=== PATIENT | male | born 1960 | race Caucasian/White ===

== ENCOUNTER 2021-01-31 05:39 | Inpatient (IN) | payer MEDICAID, SELFPAY ==
[2021-01-31] VITALS (37 sets, daily range): BP systolic 74–124; BP diastolic 52–92; PULSE 63–85; RESP 12–27; TEMP 33.6–36.8; O2SAT 91–100; BMI 26.6
--- NOTE | 2021-01-31 | ECHO_ITS ---
Patient Info Name: Keith Jha Age: 60 years : 1960 Gender: Male Ht: 66 in Wt: 165 lbs BSA: 1.88 m2 HR: 72 bpm BP: 108 / 91 mmHg Heart Rhythm: Sinus Rhythm Technical Quality: Good Exam Date: 01/31/2021 1:34 PM Exam Location: [facility] Patient Status: Inpatient Admit Date: 01/31/2021 Staff Ordering Physician: Efe Donohue MD Medical Laboratory Technical Officer: Luis Mack, SERGIOCS, RT Attending Provider: Sushant Urban MD Exam Type: CA echo doppler color flow Study Info Indications I50.9 - Heart failure, unspecified Complete two-dimensional, color flow and Doppler transthoracic echocardiogram is performed. Strain analysis performed. Summary 1. Complete two-dimensional, color flow and Doppler transthoracic echocardiogram is performed. 2. The left ventricle is moderately dilated with mild eccentric hypertrophy. There is severe global hypokinesis, with probable akinesis of the basal inferoseptal area. The calculated ejection fraction is 17% and visually appears to be 10-15%. Diastolic function is indeterminate. Global longitudinal strain is severely diminished at -4% consistent with severe systolic dysfunction. 3. Right ventricular chamber dimension is moderately enlarged with severe global hypokinesis. 4. Left atrial chamber dimension is moderately enlarged. 5. Right atrial chamber dimension is moderately enlarged. 6. There is moderate to moderately severe mitral valve regurgitation. 7. There is moderate to moderately severe tricuspid valve regurgitation. 8. There is mild pulmonic regurgitation. 9. No pulmonary hypertension, estimated pulmonary arterial systolic pressure is 31 mmHg. 10. Normal sinus rhythm. Left Ventricle Left ventricular chamber dimension is moderately enlarged. Left ventricular systolic function is severely reduced, estimated at <15%. There is mildly increased left ventricular wall thickness. Left ventricular septal wall motion is normal. The left ventricular diastolic function is indeterminate. Global longitudinal strain is severely elevated at 4 %. Right Ventricle Right ventricular chamber dimension is moderately enlarged with severe global hypokinesis. Right ventricular systolic function is reduced. Left Atria Left atrial chamber dimension is moderately enlarged. Right Atria Right atrial chamber dimension is moderately enlarged. Aortic Valve The aortic valve is trileaflet. There is no aortic valve sclerosis. There is no aortic valve stenosis. There is no aortic valve regurgitation. Pulmonic Valve The pulmonic valve is normal. There is no pulmonic valve stenosis. There is mild pulmonic regurgitation. Mitral Valve The mitral valve has normal leaflets. There is no mitral valve stenosis. There is moderate to moderately severe mitral valve regurgitation. Tricuspid Valve The tricuspid valve leaflets are normal. There is no significant tricuspid valve stenosis. There is moderate to moderately severe tricuspid valve regurgitation. No pulmonary hypertension, estimated pulmonary arterial systolic pressure is 31 mmHg. Pericardium/Pleural The pericardium appears normal. There is no pericardial effusion. Inferior Vena Cava Normal inferior vena cava with >50% collapse upon inspiration consistent with Empty right atrial pressure, 10 mmHg. Aorta The aortic root size at the sinus of Valsalva is normal. The prox ascending aorta size is normal. Left Ventricular Outflow Tract
--- NOTE | ~2021-01-31 | XR_ITS ---
EXAMINATION: XR fl guide central line place INDICATION: Tunnel dialysis catheter insertion TECHNIQUE: Two intraoperative fluoroscopic images are submitted for review. Total fluoroscopic time w as 20.1 seconds. COMPARISON: None available FINDINGS: Fluoroscopic images demonstrate a left internal jugular tunneled dialysis catheter ending w ith its tip in the proximal right atrium. Please refer to procedure note for full details. IMPRESSION: 1. Left internal jugular tunneled dialysis catheter ending with its tip in the proximal right atrium. Reviewed, dictated and finalized at location A. DESIGNER
--- NOTE | ~2021-01-31 | XR_ITS ---
EXAMINATION: XR chest 1V portable DATE: 02/01/2021 05:30 INDICATION: Right pleural effusion. TECHNIQUE: A single frontal view of the chest was obtained. COMPARISON: Chest single view 01/31/21 FINDINGS: There is a large right pleural effusion. There are airspace opacities at right lung base. T here are mild airspace opacities in left mid and lower lung zones. No pneumothorax. Cardiomegaly is n oted. Median sternotomy wires and mediastinal surgical clips are seen, likely from prior coronary art gretta bypass grafting. A right internal jugular central venous catheter is seen with tip IMPRESSION: 1. Stable large right pleural effusion. 2. Airspace opacities at left lung base and in left mid and lower lung zones with worsening on the le ft, consistent with atelectasis versus pneumonia. 3. Cardiomegaly. Reviewed, dictated and finalized at location A. DENTIAL SOLAR CONSULTANT IMPRESSION: 1. Stable large right pleural effusion. 2. Airspace opacities at left lung base and in left mid and lower lung zones wi th worsening on the left, consistent with atelectasis versus pneumonia. 3. Cardiomegaly.
--- NOTE | ~2021-01-31 | XR_ITS ---
EXAMINATION: XR chest port-a-cath/central INDICATION: Tunnel dialysis catheter insertion TECHNIQUE: Portable AP chest at 11:30 hours COMPARISON: 02/01/2021 FINDINGS: A left internal jugular dialysis catheter has been inserted which ends with its tip in the proximal right atrium. The catheter is slightly kinked at the skin surface. A large right pleural eff usion has increased in size since the prior examination. Diffuse bilateral airspace opacities are pre sent. Cardiomegaly is noted. Median sternotomy wires and mediastinal surgical clips are seen, likely from prior coronary artery bypass grafting. A right internal jugular catheter ends with its tip in th e distal superior vena cava. There is no pneumothorax. IMPRESSION: 1. Left internal jugular tunneled dialysis catheter inserted ending with its tip in the proximal righ t atrium. 2. Large right pleural effusion, slightly increased in size. 3. Diffuse bilateral airspace opacities, consistent with atelectasis versus pneumonia versus pulmonar y edema. 4. Cardiomegaly. Reviewed, dictated and finalized at location A. ENT INTAKE REPRESENTATIVE IMPRESSION: 1. Left internal jugular tunneled dialysis catheter inserted ending with its ti p in the proximal right atrium. 2. Large right pleural effusion, slightly increased in size. 3. Diffuse bilateral airspace opacities, consistent with atelectasis versus pne umonia versus pulmonary edema. 4. Cardiomegaly.
--- NOTE | ~2021-01-31 | CT_ITS ---
EXAMINATION: CT chest abdomen pelvis wo con EXAM DATE: 01/31/2021 10:47 INDICATION: Pneumonia, abdominal pain. Recent COVID positive. COPD, CHF. TECHNIQUE: Spiral CT of the chest, abdomen and pelvis was performed without contrast. Axial, israel l and sagittal images were reviewed. Coronal maximum intensity pixel images of chest reviewed. The dose-length product (DLP) for this examination was 938.35 mGy-cm. The exposure was tailored accordin g to patient size (auto mA exposure control), and iterative reconstruction (ASIR) was used as additio nal dose reduction technique. Comparison is made to prior examination from 01/31/2021, from outside ins titution. FINDINGS: CHEST: There is a right-sided IJ venous catheter in position. There is large right pleural effusion with collapsed right lower and middle lobes. Subsegmental atelectasis of the right upper lobe. Some small peripheral scattered bilateral regions of opacity, could be atelectasis or pneumonia. Right lo wer lobe, middle lobe segmental bronchi also not aerated, probably have debris. There is no mediasti nal, hilar or axillary lymphadenopathy. There is no pneumothorax. Moderate cardiomegaly. No peric ardial or left pleural effusions. There are sternotomy wires, and cardiac/coronary surgical changes . Correlate with prior history. ABDOMEN PELVIS: The liver, spleen, adrenal glands and pancreas are unremarkable. There is anasarca. T race perihepatic ascites. Moderate amount of retroperitoneal, perinephric, pericholecystic, periporta l edema. Gallbladder is contracted without calcified cholelithiasis. Mild bilateral renal atrophy. N o nephrolithiasis or hydronephrosis. There is a 1 cm cyst in the superior pole left kidney. The pros asencio is unremarkable. The bladder is collapsed with Thurman catheter balloon anchor inside. There is no retroperitoneal or pelvic lymphadenopathy. There is moderate scattered arteriosclerotic disease. The appendix is normal. The stomach and small bowel are unremarkable. There is expected amount of c olonic stool. No free intraperitoneal gas. There are bony degenerative changes. Small inguinal and umbilical fat-containing hernias. Moderate sized subxiphoid fat-containing hernia. IMPRESSION: 1. Moderate cardiomegaly. Large right pleural effusion, right middle and lower lobe collapse. 2. Small regions bilateral peripheral atelectasis or pneumonia. 3. Anasarca, retroperitoneal, perirenal, periportal and pericholecystic fat stranding. Trace perihep atic ascites. This limits sensitivity for acute intra-abdominal processes. 4. Contracted gallbladder without calcified cholelithiasis. Reviewed, dictated and finalized at location A. O TUBE ASSEMBLER IMPRESSION: 1. Moderate cardiomegaly. Large right pleural effusion, right middle and lower lobe collapse. 2. Small regions bilateral peripheral atelectasis or pneumonia. 3. Anasarca, retroperitoneal, perirenal, periportal and pericholecystic fat st randing. Trace perihepatic ascites. This limits sensitivity for acute intra-abd ominal processes. 4. Contracted gallbladder without calcified cholelithiasis.
--- NOTE | ~2021-01-31 | US_ITS ---
EXAMINATION: US abdomen limited, US abdomen duplex complete EXAM DATE: 02/01/2021 12:13 INDICATION: Elevated liver enzymes. Elevated bilirubin. Elevated AST and LT. TECHNIQUE: Multiple grayscale and Doppler images of the abdomen right upper quadrant were obtained (b y a technologist who performed the scan) and subsequently reviewed. Hepatic and portal vein Doppler evaluation. FINDINGS: Small amount of perihepatic ascites. Evaluation of hepatic vasculature. The right left and middle hepatic veins are nonthrombosed. The portal veins have biphasic waveforms, flow reversal durin g approximately one third of the cardiac cycle, likely indicating portal hypertension. The pancreatic head and body are normal in appearance. The pancreatic tail is not visualized. The l iver has normal echogenicity and contour. There are no focal liver lesions identified. There is no evidence of intrahepatic biliary duct dilation. Portal venous flow was seen in the hepatopedal, nor mal direction and has normal Doppler waveform. No right-sided hydronephrosis. Common bile duct measures 6 mm, which is normal. There are gallstones. Wall thickening up to 6 mm, mo derately edematous. Technologist performing exam reports patient did not demonstrate sonographic Mur phy's sign. Please note that this sign is less reliable in patients who have received pain medicatio n. Spleen measures 10 cm in diameter, normal. IMPRESSION: 1. Biphasic portal venous waveform, likely indicating portal hypertension. Probably cirrhosis. 2. Cholelithiasis. Gallbladder wall thickening which is nonspecific in setting of ascites and absenc e of sonographic Mack's sign. 3. No hepatic venous thrombosis. Reviewed, dictated and finalized at location A. X CASTER IMPRESSION: 1. Biphasic portal venous waveform, likely indicating portal hypertension. Pro bably cirrhosis. 2. Cholelithiasis. Gallbladder wall thickening which is nonspecific in setting of ascites and absence of sonographic Mack's sign. 3. No hepatic venous thrombosis.
--- NOTE | ~2021-01-31 | US_ITS ---
EXAMINATION: US renal BI DATE: 02/01/2021 12:13 INDICATION: Renal failure. TECHNIQUE: Multiple ultrasound grayscale images of the kidneys were obtained. COMPARISON: CT abdomen and pelvis 01/31/21 FINDINGS: The right kidney measures 10.2 x 5.4 x 5.5 cm. The left kidney measures 11.8 x 6.5 x 4.5 cm. The kidn eys demonstrate normal parenchymal echogenicity. There is no hydronephrosis. The bladder is decompres sed by a Thurman catheter. IMPRESSION: 1. Normal kidneys. No hydronephrosis. Reviewed, dictated and finalized at location A. MARKER
--- NOTE | ~2021-01-31 | XR_ITS ---
EXAMINATION: XR chest 1V portable DATE: 01/31/2021 06:20 INDICATION: Acute respiratory failure. TECHNIQUE: A single frontal view of the chest was obtained. COMPARISON: None. FINDINGS: There is a large right pleural effusion. There are airspace opacities at right lung base. C alcified left lung nodules and calcified left hilar lymph nodes are consistent with old granulomatous disease. No pneumothorax. The heart size is normal. Median sternotomy wires and mediastinal surgical clips are seen, likely from prior coronary artery bypass grafting. A right internal jugular central venous catheter is seen with tip in the superior vena cava. IMPRESSION: 1. Large right pleural effusion. 2. Airspace opacities at right lung base, consistent with atelectasis versus pneumonia. Reviewed, dictated and finalized at location A. TATION WORKER HOSING MACHINERY IMPRESSION: 1. Large right pleural effusion. 2. Airspace opacities at right lung base, consistent with atelectasis versus pn eumonia.
--- NOTE | 2021-01-31 05:30 | ADMGEN ---
This patient, Keith Jha, was admitted to Intensive Care Unit-10. Patient/family oriented to hospital policies and general routines including ID bracelet, bed and alarms, visiting hours, pain management, procedures, bathroom and other care routines, personal items, smoking policy, room service/diet, and visiting hours. Information on how to activate the Rapid Response Team has been discussed. Patient/Family are encouraged to report perceived risks to care and to ask questions if they do not understand what they are told or what they should do.
--- NOTE | 2021-01-31 05:56 | ECG_ITS ---
Measurements Intervals [place] Rate: 79 P: -2 WV: 208 QRS: 80 QRSD: 112 T: 30 QT: 398 QTc: 456 Interpretive Statements SINUS RHYTHM INTRAVENTRICULAR CONDUCTION DELAY BORDERLINE R WAVE PROGRESSION, ANTERIOR LEADS BORDERLINE T WAVE ABNORMALITY- INFERIOR LEADS BASELINE WANDER- V4-V6 BORDERLINE ECG Electronically Signed On 01-31-2021 11:51:16 [employer] by Sammy Gonzales D.O.
[2021-01-31 06:24] LABS: INR 2.7; Prothrombin Time 28.9 Seconds (11.1-14.7)
[2021-01-31 06:25] LABS: Partial Thromboplastin Time 36.3 SECONDS (22.3-36.8)
[2021-01-31 06:34] LABS: Alanine Aminotransferase 746 U/L (4-50); Albumin Level 3.7 g/dL (3.5-5.1); Alkaline Phosphatase 84 U/L (38-126); Anion Gap 18 mmol/L (8-16); Bilirubin,Total 3.4 mg/dL (0.2-1.3); Blood Urea Nitrogen 27 mg/dL (9-20); Calcium 8.6 mg/dL (8.4-10.2); Carbon Dioxide 17 mmol/L (22-30); Chloride 100 mmol/L (98-107); Estimated CRCL calculation 30 ml/min; Estimated Glomerular Filt Rate 32; Glucose 43 mg/dL (75-110); Lactic Acid Reflex 10.2 mmol/L (0.7-2.1); Phosphorus 8.6 mg/dL (2.5-4.5); Potassium 5.7 mmol/L (3.4-5.0); Sodium 135 mmol/L (137-145)
[2021-01-31 06:38] LABS: Alveolar/Arterial O2 Gradient 168.2 mmHg; Base Excess ABG -13.1 mEq/l (+/-2.0); Fractional Inspired Oxygen 40 %; HCO3 ABG 13.6 mEq/l (22.0-26.0); Oxygen Content ABG 12.6 %vol (16.0-22.0); Oxygen Saturation ABG 93.1 % (95.0-100.0); Oxyhemoglobin 89.7 % THb (90.0-100.0); PCO2 ABG 34.3 mmHg (35.0-45.0); PO2 ABG 77.6 mmHg (80.0-100.0); PO2 FiO2 Ratio Arterial Blood 1.94 %; Total Hemoglobin 9.9 g/dL (12.0-18.0)
[2021-01-31 06:39] LABS: Device NASAL CANNULA; Modified Allen's Test Unable to perform; Site Drawn LEFT RADIAL; pH ABG 7.217 (7.350-7.450)
[2021-01-31 06:41] LABS: Glucose Point of Care 39 (65-105)
[2021-01-31] MEDS: AMIODARONE 360 MG/D5W 200 ML 360 MG/200 ML BAG 33.33 MG IV CONT (06:49)
[2021-01-31] MEDS: NOREPINEPHRINE 8 MG/D5W 250 ML 8 MG/250 ML BAG 18.75 MG IV CONT (06:50)
[2021-01-31 06:55] LABS: Glucose Point of Care 134 (65-105)
[2021-01-31] MEDS: DEXTROSE 50% 25 GM/50 ML SYRINGE IV PUSH ×2 (06:58→14:08)
[2021-01-31 07:01] LABS: Troponin I 0.111 ng/mL (0.000-0.034)
[2021-01-31 07:12] LABS: Aspartate Amino Transferase 2374 U/L (17-59)
[2021-01-31] MEDS: SODIUM BICARBONATE 8.4% 50 MEQ/50 ML SYRINGE (07:23)
[2021-01-31] MEDS: SODIUM BICARBONATE 8.4% 150 MEQ in DEXTROSE 5% 1,000 ML 950 ML 50 MEQ IV CONT (07:54)
[2021-01-31 07:57] LABS: Lactate Dehydrogenase > 10750 U/L (313-618)
--- NOTE | 2021-01-31 08:51 | WPDCNINT ---
Assessment and Plan Assessment and plan (1) Septic shock: Code(s): A41.9 - Sepsis, unspecified organism; R65.21 - Severe sepsis with septic shock Status: Acute Assessment and Plan: Patient received 1 L fluid bolus due to concern of congestive heart failure Currently on IV fluids with bicarb and dextrose Levophed And vasopressin and hydrocortisone Maintain map Monitor lactic acid level (2) Acute respiratory failure: Code(s): J96.00 - Acute respiratory failure, unspecified whether with hypoxia or hypercapnia Status: Acute Assessment and Plan: Acute Respiratory failure secondary to pneumonia pulmonary, COPD, pleural effusion Patient was on BiPAP until this morning. Will try to wean him off to nasal cannula and see if he tolerates Continue close monitoring ABG and PCXR reviewed Check CT chest (3) PNA (pneumonia): Code(s): J18.9 - Pneumonia, unspecified organism Status: Acute Assessment and Plan: Empiric broad-spectrum antibiotics Cultures (4) COPD (chronic obstructive pulmonary disease): Code(s): J44.9 - Chronic obstructive pulmonary disease, unspecified Status: Acute Assessment and Plan: Start steroids, bronchodilators (5) Pleural effusion: Code(s): J90 - Pleural effusion, not elsewhere classified Status: Acute Assessment and Plan: Thoracentesis planned (6) SVT (supraventricular tachycardia): Code(s): I47.1 - Supraventricular tachycardia Status: Acute Assessment and Plan: Status post 3 dose of adenosine Now on amiodarone infusion Consult cardiology (7) Coagulopathy: Code(s): D68.9 - Coagulation defect, unspecified Status: Acute Assessment and Plan: INR 2.7 patient not on any anticoagulation suspect secondary to liver disease Vitamin K 10 mg subcu (8) Elevated liver transaminase level: Code(s): R74.01 - Elevation of levels of liver transaminase levels Status: Acute Assessment and Plan: Significantly elevated liver enzymes likely consistent with shock liver versus hepatic congestion. Patient admits to taking 2 tablets of Tylenol a day on most days for his migraine headache but denies any increase usage recently Check CT abdomen, check Tylenol level Monitor LFTs Hold statin Consult GI (9) Cirrhosis: Code(s): K74.60 - Unspecified cirrhosis of liver Status: Acute Assessment and Plan: Check CT abdomen Check ammonia level Vitamin K administered (10) Abdominal pain: Code(s): R10.9 - Unspecified abdominal pain Status: Acute Assessment and Plan: Lipase was normal Elevated LFTs as above Elevated lactic acid could be from sepsis Check CT abdomen Denies any diarrhea Continue Zosyn (11) CONI (acute kidney injury): Code(s): N17.9 - Acute kidney failure, unspecified Status: Acute Assessment and Plan: IV fluid with bicarb CT abdomen pelvis Monitor urine output and electrolytes (12) Hyperkalemia: Code(s): E87.5 - Hyperkalemia Status: Acute Assessment and Plan: Treated chemically this morning Repeat BMP at 12 (13) Chest pain: Code(s): R07.9 - Chest pain, unspecified Status: Acute Assessment and Plan: Patient has baseline history of coronary disease Chest pain although does not appear cardiac in nature, patient did had mildly elevated troponin but again in presence of septic shock and acute kidney injury E[facility] done at [facility] showed T-wave inversion in lateral leads Added aspirin Not a candidate for beta-allen statin or ARB at this time Consult cardiology Check echo Serial troponins (14) CAD (coronary artery disease): Code(s): I25.10 - Atherosclerotic heart disease of [place] coronary artery without angina pectoris Status: Acute (15) CHF (congestive heart failure): Code(s): I50.9 - Heart failure, unspecified Status: Acute
[2021-01-31 09:05] LABS: Reflex Lactic Acid Yes or No Add Lactic
[2021-01-31] MEDS: VASOPRESSIN INJ 100 UNITS in DEXTROSE 5% 95 ML IV CONT (09:11)
[2021-01-31] MEDS: ASPIRIN 325 MG TABLET PO (09:11)
--- NOTE | 2021-01-31 09:46 | PM.CNCAR ---
Assessment and Plan Assessment and plan (1) Acute respiratory failure: Code(s): J96.00 - Acute respiratory failure, unspecified whether with hypoxia or hypercapnia Status: Acute Assessment and Plan: Acute respiratory failure secondary to large right pleural effusion, possible underlying pneumonia. At this time thoracentesis is being hold off because of elevated INR. Patient had COVID infection last month (2) SVT (supraventricular tachycardia): Code(s): I47.1 - Supraventricular tachycardia Status: Acute Assessment and Plan: Terminated by adenosine and currently on amiodarone. Recommend amiodarone for today but discontinue the amiodarone tomorrow. (3) CHF (congestive heart failure): Code(s): I50.9 - Heart failure, unspecified Status: Acute Assessment and Plan: He has reported that he has ejection fraction 28% last month. Obtain records. Anti patient is in shock possibly septic shock and on vasopressin and Levophed. (4) Septic shock: Code(s): A41.9 - Sepsis, unspecified organism; R65.21 - Severe sepsis with septic shock Status: Acute Assessment and Plan: On antibiotic, vasopressin and Levophed. (5) Cirrhosis: Code(s): K74.60 - Unspecified cirrhosis of liver Status: Acute (6) Coagulopathy: Code(s): D68.9 - Coagulation defect, unspecified Status: Acute History of Present Illness History of Present Illness Consult date/time: Date of service 01/31/21 09:46 Requesting physician: Efe Donohue MD Consult reason: atrial fibrillation and congestive heart failure Reason For Visit: Acute respiratory failure/septic shock Narrative: This 60-year-old male patient with past medical history of CABG 2018 hypertension, hyperlipidemia , hepatitis-C, COPD, Previous history of tobacco use and quit 2 years ago after smoking for about 40 years. Apparently had COVID infection and was discharged from the hospital a week ago. He presented again to [facility] with shortness of breath and cough and was felt to be septic and transferred to [facility]. Apparently he stated that shortness of breath has not improved and he continued to have severe dry cough and he felt pain on the right chest from coughing. He was found to be in supraventricular tachycardia that was terminated by adenosine and patient was started on amiodarone. Apparently was on CPAP but currently he is not on CPAP management. Is currently being treated with broad-spectrum antibiotics, steroids. Currently he is in sinus rhythm. He is on Levophed 12 mics and vasopressin. He is on nasal cannula. He is sleepy. He does not want to use the BiPAP anymore. Lactic acid is 10, creatinine 2.1, potassium 5.7, LDH> 10k, AST 2300, ALT 750, troponin 0.111, chest x-ray reviewed and denies myself shows large right pleural effusion, pneumonia versus atelectasis. Review of Systems Constitutional: Constitutional: Reports fatigue, Reports lethargy and Reports weakness Eyes: Eyes: Denies blurry vision ENT: Denies epistaxis Cardiovascular: Cardiovascular: Denies chest pain Respiratory: Respiratory: Reports cough and Reports dyspnea Gastrointestinal: Gastrointestinal: Denies abdominal pain and Denies diarrhea Genitourinary: Genitourinary: Denies flank pain Musculoskeletal: Musculoskeletal: Denies back pain Integumentary/Breasts: Skin/Breast: Denies pruritus and Denies rash Neurologic: Reports headache(s) Psychiatric: Psychiatric: Reports anxiety Endocrine: Endocrine: Reports fatigue Hematologic/Lymphatic: Hematologic/Lymphatic: Denies easy bruising PMFSH Past Medical History Medical History (Updated 01/31/21 @ 10:05 by Elma Max MD) CAD (coronary artery disease) Cirrhosis COPD (chronic obstructive pulmonary disease) COVID-19 Surgical History Surgical History (Updated 01/31/21 @ 10:05 by Elma Max MD) Hx of CABG Family History Family
[2021-01-31 10:11] LABS: Acetaminophen < 10 ug/mL (10-30)
[2021-01-31 10:17] LABS: Lactic Acid 9.4 mmol/L (0.7-2.1)
[2021-01-31] MEDS: PHYTONADIONE INJ 10 MG/ML AMP SUB-Q (10:23)
[2021-01-31] MEDS: ONDANSETRON INJ 4 MG/2 ML VIAL IV PUSH ×3 (10:31→21:43)
[2021-01-31] MEDS: SODIUM CHLORIDE 0.9% IV 1,000 ML 999 ML IV CONT (12:14)
[2021-01-31] MEDS: AMIODARONE 360 MG/D5W 200 ML 360 MG/200 ML BAG 16.67 MG IV CONT (12:15)
[2021-01-31 12:20] LABS: Hematocrit 31.9 % (42.0-52.0); Hemoglobin 8.9 g/dL (14.0-18.0); Mean Corpuscular HGB Conc 27.9 g/dl (32-36); Mean Corpuscular Hemoglobin 22.9 pg (26-34); Mean Platelet Volume 11.2 fl (7.4-10.4); Platelet Count Result 392 k/mm3 (150-375); Red Blood Count 3.89 M/mm3 (4.6-6.20); Red Cell Distribution Width 20.1 % (11.5-14.5); White Blood Count 23.5 K/mm3 (4.5-10.0)
[2021-01-31 12:21] LABS: Glucose Point of Care 126 (65-105)
[2021-01-31 12:50] LABS: Albumin Level 3.6 g/dL (3.5-5.1); Alkaline Phosphatase 86 U/L (38-126); Anion Gap 20 mmol/L (8-16); Bilirubin,Total 3.8 mg/dL (0.2-1.3); Blood Urea Nitrogen 29 mg/dL (9-20); Calcium 8.4 mg/dL (8.4-10.2); Carbon Dioxide 18 mmol/L (22-30); Chloride 97 mmol/L (98-107); Estimated CRCL calculation 25 ml/min; Estimated Glomerular Filt Rate 26; Glucose 128 mg/dL (75-110); Magnesium 1.9 mg/dL (1.6-2.3); Sodium 135 mmol/L (137-145)
[2021-01-31 12:51] LABS: Troponin I 0.304 ng/mL (0.000-0.034)
[2021-01-31 13:55] LABS: Aspartate Amino Transferase 6533 U/L (17-59)
[2021-01-31 13:56] LABS: Alanine Aminotransferase 1747 U/L (4-50)
--- NOTE | 2021-01-31 14:07 | PM.IMHP ---
H&P: HPI History of Present Illness Date/Time: 01/31/21 14:07 Chief Complaint: Shortness of breath Narrative: Keith Jha is a 60 year old male with a past medical history CABG in 2018, COPD, and recently he was treated for COVID-19 at [facility] and discharged about a week ago, patient again presented to the hospital with cough shortness of breath, his lactic acid was elevated to 10, he was hypotensive and, metabolic acidosis, in sepsis patient was transferred to the [facility], patient was placed on bicarb drip, and started the patient on Zosyn and vancomycin, patient also developed supraventricular tachycardia and was given adenosine to abort the rhythm and now is in sinus rhythm, currently on amiodarone infusion, and seen by dinkey brakeman, patient also has a large right-sided pleural effusion and will need thoracentesis, patient INR is 2.7 and given vitamin K, patient is a very poor historian sleepy unable to provide detailed review of symptoms or history, patient seen by flat sheet maker and discussed and appreciate. Review of Systems Review of Systems: ROS unobtainable: Yes unobtainable due to medical condition [facility] Past Medical History Medical History (Updated 01/31/21 @ 10:05 by Elma Max MD) CAD (coronary artery disease) Cirrhosis COPD (chronic obstructive pulmonary disease) COVID-19 Surgical History Surgical History (Updated 01/31/21 @ 10:05 by Elma Max MD) Hx of CABG Family History Family History Father Lung cancer Grandparent Lung cancer Social History Social History Smoking packs per day: 1 Smoking cigarettes per day: 20.0 Years smoked: 46 Smoking pack-years: 46.00 Smoking status: Former smoker Tobacco type: cigarettes Smoking end date: 01/03/21 Alcohol intake: former Substance use: former Substance use type: marijuana Spiritual care concerns: No Meds Home Medications and Allergies Home Medications Medication Instructions Recorded Confirmed Type aspirin 81 mg PO DAILY 01/31/21 01/31/21 History cholecalciferol (vitamin D3) 50 mcg PO DAILY 01/31/21 01/31/21 History furosemide 40 mg PO DAILY 01/31/21 01/31/21 History lisinopril 2.5 mg PO DAILY 01/31/21 01/31/21 History pravastatin 40 mg PO DAILY 01/31/21 01/31/21 History Allergies Allergy/AdvReac Type Severity Reaction Status Date / Time No Known Allergies Allergy Verified 01/31/21 06:19 Vital Signs Vital Signs - 24 hr 01/31/21 05:30 01/31/21 06:00 01/31/21 06:13 Temperature 98.2 F Pulse Rate 85 82 85 Respiratory Rate 25 H 18 Blood Pressure 102/70 Pulse Oximetry 91 01/31/21 06:33 01/31/21 06:46 01/31/21 06:49 Temperature Pulse Rate 80 80 Respiratory Rate 17 Blood Pressure 84/52 L Pulse Oximetry 98 100 01/31/21 06:50 01/31/21 07:22 01/31/21 08:00 Temperature 97.6 F Pulse Rate 80 79 80 Respiratory Rate 15 Blood Pressure 84/52 L 83/52 L 100/88 Pulse Oximetry 100 01/31/21 08:01 01/31/21 08:23 01/31/21 08:31 Temperature Pulse Rate 78 82 Respiratory Rate 27 H Blood Pressure 108/91 H Pulse Oximetry 92 100 01/31/21 09:06 01/31/21 09:11 01/31/21 09:55 Temperature Pulse Rate 82 81 Respiratory Rate Blood Pressure 74/60 L 74/60 L 108/62 Pulse Oximetry 01/31/21 10:00 01/31/21 11:31 01/31/21 12:00 Temperature 97.4 F L Pulse Rate 75 81 78 Respiratory Rate 15 16 Blood Pressure 99/64 L 119/92 H 104/68 Pulse Oximetry 96 96 01/31/21 12:15 Temperature Pulse Rate 76 Respiratory Rate Blood Pressure 104/68 Pulse Oximetry Exam Narrative: Exam Narrative: Appears chronically ill older than his age Patient is comfortable, NAD HEENT: eyes are clear and none icteric LUNGS: Normal respiratory effort ABD: Not distended Lower extremities: no edema SKIN: nonjaundiced Neuro: gross
[2021-01-31] MEDS: SODIUM BICARBONATE 8.4% 50 MEQ/50 ML SYRINGE 100 MEQ IV PUSH (14:08)
[2021-01-31] MEDS: INSULIN HUMAN REGULAR (*BKC) 100 UNITS/ML 10 UNITS IV PUSH (14:09)
[2021-01-31] MEDS: HYDROCORTISONE SODIUM SUCCINATE 100 MG/2 ML VIAL IV PUSH ×2 (14:18→21:43)
[2021-01-31] MEDS: CALCIUM GLUC 1,000 MG/NS 50 ML 1,000 MG/50 ML BAG 100 MG IVPB (14:35)
[2021-01-31] MEDS: SODIUM POLYSTYRENE SULFONONATE 15 GM/60 ML BTL 30 GM PO (15:22)
--- NOTE | 2021-01-31 16:06 | WPDGICN ---
Assessment and Plan Assessment and plan (1) Shock liver: Code(s): K72.00 - Acute and subacute hepatic failure without coma Status: Acute Assessment and Plan: probably he has underlying liver disease (he says that was treated successfully for HCV years ago- we can check HCV RNA to document) but now worsening liver function in setting of shock with metabolic acidosis (high latic acid) and probably congestive hepatopathy and recent COVID infection (2) Elevated liver transaminase level: Code(s): R74.01 - Elevation of levels of liver transaminase levels Status: Acute Assessment and Plan: multifactorial, supportive care in icu, he is also on levophed and antibiotics (3) Septic shock: Code(s): A41.9 - Sepsis, unspecified organism; R65.21 - Severe sepsis with septic shock Status: Acute Assessment and Plan: by icu and cardiology team (4) PNA (pneumonia): Code(s): J18.9 - Pneumonia, unspecified organism Status: Acute Assessment and Plan: pneumonia and pleural effusion, recent covid (5) Acute respiratory failure: Code(s): J96.00 - Acute respiratory failure, unspecified whether with hypoxia or hypercapnia Status: Acute Assessment and Plan: multifactorial (CHF, pneumonia, recent covid infection) (6) Coagulopathy: Code(s): D68.9 - Coagulation defect, unspecified Status: Acute (7) Abdominal pain: Code(s): R10.9 - Unspecified abdominal pain Status: Acute (8) COPD (chronic obstructive pulmonary disease): Code(s): J44.9 - Chronic obstructive pulmonary disease, unspecified Status: Acute (9) SVT (supraventricular tachycardia): Code(s): I47.1 - Supraventricular tachycardia Status: Acute Assessment and Plan: treated, cardiology on board (10) CHF (congestive heart failure): Code(s): I50.9 - Heart failure, unspecified Status: Acute GI Consult Note Consult date/time: 01/31/21 16:06 Reason for consult: elevated liver enzymes HPI: Keith Jha is a 60 year old male with CAD s/p CABG in 2018, systolic heart failure, COPD, former smoker, previously treated for chronic HCV with interferon and RIB successfully and former alcoholic (quit years ago). He was treated for COVID-19 at [facility] weeks ago and discharged about a week ago. He had worsening cough and more shortness of breath along with abdominal pain, family noted that he was tachycardic at home and brought to ER. He was in SVT, given adenosine and then started on amiodarone infusion, also had hypotension and sepsis with possible pneumonia, admitted to ICU after antibiotics, also now on levophed, had right IJ central venous catheter and put on Bipap. Lactic acid was elevated to 10, metabolic acidosis now on bicarb drip. XR reviewed that showed large right-sided pleural effusion. Also noted elevated liver enzymes (700 and 2000 but today climbed to 1700 and 6500) with inr 2.7, creat 2.1. CT scan reviewed showed anasarca, retroperitoneal, perirenal, periportal and pericholecystic fat stranding. Trace perihepatic ascites. This limits sensitivity for acute intra-abdominal processes, contracted gallbladder without calcified cholelithiasis. Review of Systems Constitutional: Constitutional: Reports fatigue and Reports lethargy Eyes: Eyes: Reports no additional eye complaints ENT: Reports system reviewed and no additional complaints, except as documented Cardiovascular: Cardiovascular: Reports palpitations Respiratory: Respiratory: Reports dyspnea on exertion Gastrointestinal: Gastrointestinal: Reports abdominal pain and Reports nausea Genitourinary: Genitourinary: Reports no additional male genitourinary complaints Musculoskeletal: Musculoskeletal: Reports no additional musculoskeletal complaints Integumentary/Breasts: Skin/Breast: Denies pruritus Psychiatric: Psychiatric: Reports anxiety PMFSH Past Medica
[2021-01-31 17:46] LABS: Glucose Point of Care 208 (65-105)
[2021-01-31 19:03] LABS: Lactic Acid Reflex 9.5 mmol/L (0.7-2.1)
[2021-01-31 19:20] LABS: Troponin I 0.519 ng/mL (0.000-0.034)
[2021-01-31 20:09] LABS: Anion Gap 17 mmol/L (8-16); Blood Urea Nitrogen 31 mg/dL (9-20); Calcium 7.7 mg/dL (8.4-10.2); Carbon Dioxide 20 mmol/L (22-30); Chloride 96 mmol/L (98-107); Estimated CRCL calculation 23 ml/min; Estimated Glomerular Filt Rate 23; Glucose 231 mg/dL (75-110); Potassium 5.8 mmol/L (3.4-5.0); Sodium 133 mmol/L (137-145)
[2021-01-31] MEDS: MORPHINE SULFATE (*CRX) 2 MG/ML INJ IV PUSH (21:43)
[2021-01-31] MEDS: NOREPINEPHRINE 8 MG/D5W 250 ML 8 MG/250 ML BAG 9.38 MG IV CONT (21:44)
[2021-01-31 21:46] LABS: Reflex Lactic Acid Yes or No Add Lactic
[2021-02-01] VITALS (32 sets, daily range): BP systolic 89–122; BP diastolic 60–99; PULSE 65–85; RESP 13–23; TEMP 35.3–36.6; O2SAT 93–99
[2021-02-01] MEDS: AMIODARONE 360 MG/D5W 200 ML 360 MG/200 ML BAG 16.67 MG IV CONT (00:18)
[2021-02-01 00:19] LABS: Glucose Point of Care 218 (65-105)
[2021-02-01 05:53] LABS: Basophils Percent Auto 0.2 % (0.2-1.2); Hematocrit 32.9 % (42.0-52.0); Hemoglobin 9.1 g/dL (14.0-18.0); Immature Granulocyte Absolute 0.24 K/mm3 (0.00-0.031); Immature Granulocyte Percent A 1.1 % (0-0.5); Lymphocytes Absolute Auto 0.98 K/mm3 (0.9-3.2); Lymphocytes Percent Auto 4.5 % (18.3-44.2); Mean Corpuscular HGB Conc 27.7 g/dl (32-36); Mean Corpuscular Hemoglobin 23.2 pg (26-34); Mean Corpuscular Volume 83.9 fl (80-100); Monocytes Absolute Auto 1.3 K/mm3 (0.1-0.6); Neutrophils Percent Auto 88.2 % (45.5-73.1); Nucleated Red Blood Cells Absolute Auto 0.2 K/mm3 (0.0-0.012); Nucleated Red Blood Cells Perc 0.7 % (0.0-0.2); Platelet Count Result 364 k/mm3 (150-375); Red Blood Count 3.92 M/mm3 (4.6-6.20); Red Cell Distribution Width 20.1 % (11.5-14.5); White Blood Count 21.6 K/mm3 (4.5-10.0)
[2021-02-01 06:14] LABS: Albumin Level 3.4 g/dL (3.5-5.1); Alkaline Phosphatase 97 U/L (38-126); Anion Gap 17 mmol/L (8-16); Bilirubin,Total 3.7 mg/dL (0.2-1.3); Blood Urea Nitrogen 35 mg/dL (9-20); Calcium 6.4 mg/dL (8.4-10.2); Carbon Dioxide 24 mmol/L (22-30); Chloride 93 mmol/L (98-107); Estimated CRCL calculation 20 ml/min; Estimated Glomerular Filt Rate 20; Glucose 221 mg/dL (75-110); Magnesium 1.8 mg/dL (1.6-2.3); Phosphorus 9.4 mg/dL (2.5-4.5); Potassium 5.7 mmol/L (3.4-5.0); Sodium 134 mmol/L (137-145)
[2021-02-01] MEDS: HYDROCORTISONE SODIUM SUCCINATE 100 MG/2 ML VIAL IV PUSH ×3 (06:21→21:03)
[2021-02-01 06:36] LABS: Lactic Acid Reflex 7.6 mmol/L (0.7-2.1)
[2021-02-01 06:49] LABS: Aspartate Amino Transferase > 7500 U/L (17-59)
[2021-02-01 07:08] LABS: Alanine Aminotransferase 3179 U/L (4-50)
--- NOTE | 2021-02-01 08:41 | WPDINTPN ---
Progress Note: A&P Assessment and Plan (1) Septic shock: Code(s): A41.9 - Sepsis, unspecified organism; R65.21 - Severe sepsis with septic shock Status: Acute Assessment and Plan: Patient received 1 L fluid bolus in the ED due to concern of congestive heart failure. Another 1 L bolus was given in ICU yesterday. Patient was started o on IV fluids with bicarb and dextrose Levophed does and requirement has improved although still requiring. Will hold further IV fluids as patient is overall volume overloaded and Check NICOM Monitor CVP Check mixed venous gas Continue Levophed, vasopressin and hydrocortisone Maintain map Persistent elevated lactic acid likely secondary to cirrhosis as patient's pressor requirement has gone down and he has clinically improved (2) Acute respiratory failure: Code(s): J96.00 - Acute respiratory failure, unspecified whether with hypoxia or hypercapnia Status: Acute Assessment and Plan: Acute Respiratory failure secondary to pneumonia pulmonary, COPD, pleural effusion Patient was on BiPAP until yesterday. Now saturating well on nasal cannula and in no respiratory distress Continue close monitoring ABG and PCXR reviewed CT Chest 1. Moderate cardiomegaly. Large right pleural effusion, right middle and lower lobe collapse. 2. Small regions bilateral peripheral atelectasis or pneumonia. Thoracentesis planned (3) PNA (pneumonia): Code(s): J18.9 - Pneumonia, unspecified organism Status: Acute Assessment and Plan: Empiric broad-spectrum antibiotics vancomycin and Zosyn Cultures are negative as of now (4) COPD (chronic obstructive pulmonary disease): Code(s): J44.9 - Chronic obstructive pulmonary disease, unspecified Status: Acute Assessment and Plan: Continue steroids, bronchodilators (5) Pleural effusion: Code(s): J90 - Pleural effusion, not elsewhere classified Status: Acute Assessment and Plan: Thoracentesis planned Vitamin K was given yesterday. INR pending (6) SVT (supraventricular tachycardia): Code(s): I47.1 - Supraventricular tachycardia Status: Acute Assessment and Plan: Status post 3 dose of adenosine at the outside hospital ED Now on amiodarone infusion. Currently in normal sinus rhythm Will discontinue amiodarone at this time due to elevated liver enzymes and monitor Cardiology following Echo reviewed (7) Coagulopathy: Code(s): D68.9 - Coagulation defect, unspecified Status: Acute Assessment and Plan: INR 2.7 patient not on any anticoagulation suspect secondary to liver disease Vitamin K 10 mg subcu given yesterday Repeat INR pending (8) Elevated liver transaminase level: Code(s): R74.01 - Elevation of levels of liver transaminase levels Status: Acute Assessment and Plan: Significantly elevated liver enzymes likely consistent with shock liver with hepatic congestion. Patient admits to taking 2 tablets of Tylenol a day on most days for his migraine headache but denies any increase usage recently. Tylenol level was normal CT abdomen reviewed Monitor LFTs Hold statin GI consulted. Hepatitis viral level pending Check ultrasound right upper quadrant to assess portal venous flow (9) Cirrhosis: Code(s): K74.60 - Unspecified cirrhosis of liver Status: Acute Assessment and Plan: After review records is appears the patient does have diagnosis of cirrhosis. Vitamin K administered (10) Abdominal pain: Code(s): R10.9 - Unspecified abdominal pain Status: Acute Assessment and Plan: Lipase was normal Elevated LFTs as above Elevated lactic acid could be from sepsis Check CT abdomen Denies any diarrhea Continue Zosyn (11) CONI (acute kidney injury): Code(s): N17.9 - Acute kidney failure, unspecified Status: Acute Assessment and Plan: Reviewed records from [place] patient was admitted
[2021-02-01] MEDS: CALCIUM CHLOR 1,000MG/100ML NS 1,000 MG/100 ML BAG 100 MG IVPB (08:54)
[2021-02-01 08:55] LABS: Prothrombin Time 53.7 Seconds (11.1-14.7)
[2021-02-01] MEDS: PANTOPRAZOLE SODIUM IV 40 MG VIAL IV PUSH (08:55)
[2021-02-01 08:58] LABS: Creatine Kinase 331 U/L (55-170)
[2021-02-01 09:12] LABS: Fractional Inspired Oxygen 32 %; HCO3 VBG 22.9 mEq/l (24.0-30.0); PCO2 VBG 53.5 mmHg (42.0-48.0); PO2 VBG 34.4 mmHg (35.0-45.0)
[2021-02-01 09:13] LABS: Device NASAL CANNULA; pH VBG 7.249 (7.300-7.400)
[2021-02-01] MEDS: SODIUM CHLORIDE 0.9% IV 500 ML 999 ML IV CONT (09:26)
[2021-02-01 09:32] LABS: Fibrinogen 224 mg/dl (215-510)
[2021-02-01] MEDS: SODIUM POLYSTYRENE SULFONONATE 15 GM/60 ML BTL 30 GM PO (09:40)
[2021-02-01] MEDS: FUROSEMIDE INJ 100 MG/10 ML VIAL 80 MG IV PUSH (09:40)
[2021-02-01] MEDS: VASOPRESSIN INJ 100 UNITS in DEXTROSE 5% 95 ML IV CONT (10:26)
--- NOTE | 2021-02-01 11:03 | PM.CNNEP ---
Assessment and Plan Assessment and plan (1) CONI (acute kidney injury): Code(s): N17.9 - Acute kidney failure, unspecified Status: Acute Assessment and Plan: The patient has acute kidney injury. He left [facility] with a creatinine of 1.3. This is close to normal. He does not claim any history of kidney disease before this Other than that episode of acute kidney injury during his COVID experience. Sometimes people are left with chronic kidney disease after CONI from any cause including COVID. In addition his CT of the abdomen shows mild bilateral renal atrophy suggesting some element of chronic kidney disease. Perhaps because of his other chronic medical issues including cirrhosis and heart failure, his muscle mass is lower than average and so the creatinine underestimates the degree of kidney disease. Currently he is not making any urine in his creatinine is climbing. The fact that there is almost no urine output suggests a urologic cause. Perhaps he has only 1 functioning kidney and there is a stone or some other issue. His urine is yellow not brown, so it does not look like ATN. The CT scan did not show hydronephrosis however. Will get a renal ultrasound just to be sure. He could have severe pre renal azotemia because of his terrible heart function. This is at least playing a role if not the entire story. Will get urine electrolytes to help sort this out. Rhabdomyolysis could do this but his CK is only about 500. Will repeat another test tomorrow. Glomerulonephritis would be unlikely in this scenario. Interstitial nephritis would be unlikely because of the minimal amount of protein he is making. Will check urine eosinophils just in case. Because of his poor heart function consider dobutamine. He did have the SVT yesterday however so cardiology is consulted to assess the situation. I agree with a trial of diuretics. (2) CHF (congestive heart failure): Code(s): I50.9 - Heart failure, unspecified Status: Acute Assessment and Plan: EF is only 15%. Cardiology is being consulted (3) CAD (coronary artery disease): Code(s): I25.10 - Atherosclerotic heart disease of hoopa coronary artery without angina pectoris Status: Acute Assessment and Plan: he had a bypass in 2003 (4) SVT (supraventricular tachycardia): Code(s): I47.1 - Supraventricular tachycardia Status: Acute Assessment and Plan: this resolved with Amiodarone (5) Cirrhosis: Code(s): K74.60 - Unspecified cirrhosis of liver Status: Acute Assessment and Plan: this is due to hepatitis C. he did not drink a lot before that. (6) COPD (chronic obstructive pulmonary disease): Code(s): J44.9 - Chronic obstructive pulmonary disease, unspecified Status: Acute Assessment and Plan: He has stop smoking he says History of Present Illness Reason for Consult Consult date: 02/01/21 Chief Complaint Chief complaint: Acute respiratory failure/septic shock History of Present Illness Narrative: Keith is a very pleasant 60-year-old gentleman who has multiple medical problems including hepatitis C which was treated, cirrhosis, ascites, pleural effusion, coronary disease status post bypass, congestive heart failure with an EF of only 15%, COPD, former smoker, former drinker but only socially, who just recovered from COVID. In December the patient was at [facility] with COVID. he apparently had some cardiac issues there and the echo showed an EF of about 25-30%. he was given supportive care for the COVID. He had swelling. He was given diuretics He improved by discharge. He did pretty well at home until about a week ago when he started getting weak and short of breath again. He did not think he ran any fevers. He took his temperature and he did not. He does have occasional chills however. He did not have any nausea vo
[2021-02-01 11:08] LABS: Ammonia 24 umol/L (9-30)
[2021-02-01] MEDS: ASPIRIN 325 MG TABLET PO (12:21)
[2021-02-01 12:55] LABS: Add Urine Microscopic? YES; Amorphous Sediment Urine Few; Appearance Urine Cloudy (Clear); Bacteria Urine Trace /hpf; Bilirubin Urine Negative (Negative); Blood Urine 3+ (Negative); Color Urine Yellow (Yellow); Creatinine Urine 15.4 mg/dL; Glucose Urine UA 1+ mg/dL (Negative); Ketones Urine Negative (Negative); Leukocyte Esterase Ur 3+ LEU/UL (NEGATIVE); Mucus Urine Rare /lpf; Nitrate Urine Negative (Negative); Protein Urine 2+ mg/dL (Negative); RBC Urine >75 /hpf (0-2); Specific Grav Ur 1.013 (1.001-1.035); Squamous Epithelial Cell Urine Rare /hpf (Few); Urobilinogen Urine Negative mg/dL (<2.0); WBC Clumps Urine Present /HPF; WBC Urine >75 /hpf (0-3)
[2021-02-01 12:57] LABS: Sodium Urine Random 123 meq/L
[2021-02-01 13:18] LABS: Glucose Point of Care 183 (65-105)
[2021-02-01 13:25] LABS: Cortisol Random > 123.00 ug/dL
[2021-02-01 13:27] LABS: Total Protein Urine Random 338 mg/dL; Ur Ttl Prot Creatinine Ratio 21.95 mg/mg (0-0.20)
[2021-02-01] MEDS: CENTRAL LINE FLUSH 10 ML IV PUSH ×2 (14:04→21:03)
[2021-02-01] MEDS: MORPHINE SULFATE (*CRX) 2 MG/ML INJ IV PUSH ×2 (14:09→23:56)
--- NOTE | 2021-02-01 14:17 | PM.EVENT ---
Event Note Event Note Event Note: Abdominal and right upper quadrant ultrasound reviewed Patient was not fluid responsive on NICOM assessment CVP was 27-30 No further fluid this were given Discussed with GI, although patient's Tylenol level was low in light of ischemic hepatitis and worsening liver function with background cirrhosis will start patient on acetadote for hepatoprotaction effect for next 24 hours. Discussed with patient and he is agreeable Mixed venous checked from central line showed SCV O2 of 56%
--- NOTE | 2021-02-01 15:05 | PM.IMPN ---
Progress Note: A&P Assessment and Plan (1) Septic shock: Code(s): A41.9 - Sepsis, unspecified organism; R65.21 - Severe sepsis with septic shock Status: Acute Assessment and Plan: 02/01/21 15:05 Keith Jha is a 60 year old male with a past medical history CABG in 2018, COPD, and recently he was treated for COVID-[address] [facility] and discharged about a week ago, patient again presented to the hospital with cough shortness of breath, his lactic acid was elevated to 10, he was hypotensive and, metabolic acidosis, in sepsis patient was transferred to the [facility], patient was placed on bicarb drip, and started the patient on Zosyn and vancomycin, patient also developed supraventricular tachycardia and was given adenosine to abort the rhythm and now is in sinus rhythm, currently on amiodarone infusion, and seen by manager business information, patient also has a large right-sided pleural effusion and will need thoracentesis, patient INR is 2.7 and given vitamin K, patient is a very poor historian sleepy unable to provide detailed review of symptoms or history, patient seen by medication aide and discussed and appreciate. 03/04 patient appears more somnolent and ill, patient with elevated liver enzyme and bili, patient had abdominal US and showed Biphasic portal venous waveform, likely indicating portal hypertension. Probably cirrhosis. Merchandise Buyer suspect Tylenol toxicity however acetaminophen levels were low however medication aide had decided to start the patient on acetadote for hepatoprotaction effect for next 24hrs, patient still hypotensive however patient volume overloaded and urine output is poor unable to give fluid patient is on Levophed and vasopressin as well as hydrocortisone, patient with a pleural effusion in need of thoracentesis however patient is elevated INR of 6 today, patient was given vitamin K without improvement, medication aide will give FFP and will monitor, prognosis is poor will continue to monitor. (2) Acute respiratory failure: Code(s): J96.00 - Acute respiratory failure, unspecified whether with hypoxia or hypercapnia Status: Acute Assessment and Plan: Most likely secondary to large pleural effusion on the right side, pneumonia and exacerbation of COPD, patient is refusing BiPAP, on nasal cannula will continue to monitor (3) PNA (pneumonia): Code(s): J18.9 - Pneumonia, unspecified organism Status: Acute Assessment and Plan: Sepsis most likely secondary to pneumonia, Most likely hospital-acquired pneumonia being treated with Zosyn and vancomycin (4) COPD (chronic obstructive pulmonary disease): Code(s): J44.9 - Chronic obstructive pulmonary disease, unspecified Status: Acute Assessment and Plan: Long history of smoking, patient is treated with a steroid and updraft (5) Pleural effusion: Code(s): J90 - Pleural effusion, not elsewhere classified Status: Acute Assessment and Plan: Patient with large right-sided pleural effusion will need thoracentesis, INR supratherapeutic patient is given vitamin K further recommendation to (6) Chest pain: Code(s): R07.9 - Chest pain, unspecified Status: Acute Assessment and Plan: Patient with history of CABG now with chest and elevated tropes patient is seen by manager business information further recommendation to follow (7) SVT (supraventricular tachycardia): Code(s): I47.1 - Supraventricular tachycardia Status: Acute Assessment and Plan: Supple ventricle tachycardia most likely secondary to hypoxia patient was given adenosine and now in sinus rhythm Subjective Date/time seen: 02/01/21 15:05 Keith Jha is a 60 year old male with a past medical history CABG in 2018, COPD, and recently he was treated for COVID-[address] [facility] and discharged about a week ago, patient again presented to the hospital with cough shortness of breath, his lactic ac
--- NOTE | 2021-02-01 16:14 | PM.PNCARD ---
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 In any event he is now very poor condition with low cardiac output, acute renal failure, what appears to be a picture of shock liver and currently being weaned off of inotropic support. Complicating all this is recent israel virus infection. Will follow him with you. When he is off of pressors we potentially can start titrating in some CHF medications very cautiously. Advancing renal failure is obviously a very poor sign. Apparently the patient and family are considering hospice level services. Although he is relatively young this does not seem unreasonable. Prognosis at this time seems extremely poor Sameer Zhou MD [facility] Subjective Date/time seen: 02/01/21 16:14 Interval history: Follow-up visit in this 60-year-old patient with: Severe cardiomyopathy presumed ischemic as he has had multivessel bypass surgery in the remote past. Patient reports that his operation also included repairing a hole in his heart and removing a cardiac tumor. Obviously we have none of these records at the time of hospitalization here. He does recall his waste hand telling him that his heart was significantly weak and following his operation. Recent Coronavirus infection hospitalized elsewhere, transferred to [facility] because the referring hospital apparently had no ICU beds available Some sort of tachyarrhythmia being treated in the referring hospital's ED with both adenosine and amiodarone. There are no EKGs or rhythm strips of this arrhythmia available for me to review. Amiodarone was used and has been stopped at this point by the missile mechanic because of hepatic dysfunction and elevated transaminases. Currently in sinus rhythm Exam Const: General: comfortable and no acute distress Other: Chronically ill-appearing 60-year-old man in the ICU currently offering no complaints HENMT: Mouth: Yes dry mucous membranes Eyes: Sclera: sclerae normal Pupils: Equal, round and reactive pupils present Neck: Neck: supple and no JVD Other: Carotid upstrokes are diminished in volume but normal in upstroke Resp: Effort & Inspection: normal respiratory effort Other: Breath sounds are distant in both lung powers with diminished breath sounds Cardio: Rate: regular rate Rhythm: regular rhythm Other: PMI laterally displaced and enlarged summation gallop noted GI: GI Palp: Yes Soft to palpation Auscultation: normal bowel sounds Skin: General skin exam: normal color Neuro: Cognition (Neuro): normal cognition Extrem: Other: No peripheral edema Objective Data Vital Signs Vital Signs: Vital Signs - 24 hr 01/31/21 16:54 01/31/21 17:24 01/31/21 18:00 Temperature Pulse Rate 63 63 72 Respiratory Rate 23 H Blood Pressure 124/78 116/82 120/73 Pulse Oximetry 95 01/31/21 18:30 01/31/21 20:00 01/31/21 21:57 Temperature 33.6 C L Pulse Rate 70 69 Respiratory Rate 19 Blood Pressure 120/73 120/73 Pulse Oximetry 97 01/31/21 21:58 01/31/21 22:00 01/31/21 22:16 Temperature 33.6 C L 34.0 C L 34.9 C L Pulse Rate 68 68 68 Respiratory Rate 20 19 16 Blood Pressure 109/64 116/62 118/72 Pulse Oximetry 97 96 98 01/31/21 22:30 01/31/21 22:31 01/31/21 22:45 Temperature 34.9 C L 35.1 C L 35.1 C L Pulse Rate 67 Respiratory Rate 15 Blood Pressure 104/73 Pulse Oximetry 100 01/31/21 23:00 01/31/21 23:30 02/01/21 00:00 Temperature 35.2 C L 35.2 C L 35.3 C L Pulse Rate 66 Respiratory Rate 14 Blood Pressure 100/68 Pulse Oximetry 99 02/01/21 00:18 02/01/21 00:30 02/01/21 01:00 Temperature 35.4 C L 35.5 C L Pulse Rate 70 Respiratory Rate Blood Pressure 100/68 Pulse Oximetry 02/01/21 01:30 02/01/21 02:00 02/01/21 02:05 Temperature 35.8 C L 35.9 C L Pulse Rate 65 Respiratory Rate 18
--- NOTE | 2021-02-01 16:40 | WPDGIPROGNO ---
Progress Note: A&P Assessment and Plan (1) Shock liver: Code(s): K72.00 - Acute and subacute hepatic failure without coma Status: Acute Assessment and Plan: raising transaminases, clinical picture consistent with shock liver (had elevated lactic acid, hypotension on pressors, decompensated CHF), also previous COVID infection and he may have underlying liver disease (treated years ago for hcv and former alcohol use) agree to start mucomyst IV for now, family members excessive use of acetaminophen products prognosis is guarded trend lft's (2) Elevated liver enzymes: Code(s): R74.8 - Abnormal levels of other serum enzymes Status: Acute Assessment and Plan: multifactorial but mostly from shock liver (3) Septic shock: Code(s): A41.9 - Sepsis, unspecified organism; R65.21 - Severe sepsis with septic shock Status: Acute Assessment and Plan: on pressors (4) PNA (pneumonia): Code(s): J18.9 - Pneumonia, unspecified organism Status: Acute Assessment and Plan: on antibiotics by primary (5) Acute respiratory failure: Code(s): J96.00 - Acute respiratory failure, unspecified whether with hypoxia or hypercapnia Status: Acute (6) CHF (congestive heart failure): Code(s): I50.9 - Heart failure, unspecified Status: Acute (7) Abdominal pain: Code(s): R10.9 - Unspecified abdominal pain Status: Acute (8) Coagulopathy: Code(s): D68.9 - Coagulation defect, unspecified Status: Acute Assessment and Plan: given vit K and repeat INR (9) History of hepatitis C: Code(s): Z86.19 - Personal history of other infectious and parasitic diseases Status: Acute Assessment and Plan: treated years ago successfully, ordered HCV RNA to confirm eradication Subjective Date/time seen: 02/01/21 16:40 Interval history: he is still on pressors, having shortness of breath, no major changes. Review of Systems Review of Systems: All systems reviewed & are unremarkable except as noted in HPI and below Exam Const: General: in distress and ill appearing chronically HENMT: General nose exam: no epistaxis Eyes: Sclera: sclerae normal Neck: Neck: supple Resp: Effort & Inspection: abnormal respiratory effort Auscultation: rales and diminished lung sounds Cardio: Rate: regular rate Rhythm: regular rhythm GI: Inspection: non-distended GI Palp: Yes Soft to palpation, No Firmness to palpation present (GI), Yes Tenderness to palpation present (GI) (mild ttp in mid abdomen, no rebound) and No Guarding due to palpation present (GI) Auscultation: normal bowel sounds Urinary Catheter: Urinary Catheter: patent and draining Skin: General skin exam: normal color Neuro: Speech: normal speech Motor exam (neuro): 5/5 motor strength present throughout Extrem: General: normal to inspection Psych: Affect: Anxious affect present Objective Data Vital Signs Vital Signs: Vital Signs - 24 hr 01/31/21 16:54 01/31/21 17:24 01/31/21 18:00 Temperature Pulse Rate 63 63 72 Respiratory Rate 23 H Blood Pressure 124/78 116/82 120/73 Pulse Oximetry 95 01/31/21 18:30 01/31/21 20:00 01/31/21 21:57 Temperature 92.4 F L Pulse Rate 70 69 Respiratory Rate 19 Blood Pressure 120/73 120/73 Pulse Oximetry 97 01/31/21 21:58 01/31/21 22:00 01/31/21 22:16 Temperature 92.4 F L 93.2 F L 94.8 F L Pulse Rate 68 68 68 Respiratory Rate 20 19 16 Blood Pressure 109/64 116/62 118/72 Pulse Oximetry 97 96 98 01/31/21 22:30 01/31/21 22:31 01/31/21 22:45 Temperature 94.8 F L 95.1 F L 95.1 F L Pulse Rate 67 Respiratory Rate 15 Blood Pressure 104/73 Pulse Oximetry 100 01/31/21 23:00 01/31/21 23:30 02/01/21 00:00 Temperature 95.3 F L 95.3 F L 95.6 F L Pulse Rate 66 Respiratory Rate 14 Blood Pressure 100/68 Pulse Oximetry 99 02/01/21 00:18 02/01/21 00:30 02/01/21 01:00 Temper
[2021-02-01 16:59] LABS: Glucose Point of Care 259 (65-105)
[2021-02-02] VITALS (27 sets, daily range): BP systolic 90–123; BP diastolic 63–88; PULSE 81–120; RESP 10–25; TEMP 35.8–36.3; O2SAT 90–100
[2021-02-02 00:05] LABS: Glucose Point of Care 266 (65-105)
[2021-02-02] MEDS: CENTRAL LINE FLUSH 10 ML IV PUSH ×3 (05:03→21:38)
[2021-02-02] MEDS: HYDROCORTISONE SODIUM SUCCINATE 100 MG/2 ML VIAL IV PUSH ×3 (05:04→22:24)
[2021-02-02 05:16] LABS: Hematocrit 28.2 % (42.0-52.0); Hemoglobin 8.3 g/dL (14.0-18.0); Mean Corpuscular HGB Conc 29.4 g/dl (32-36); Mean Corpuscular Hemoglobin 23.6 pg (26-34); Mean Corpuscular Volume 80.1 fl (80-100); Platelet Count Result 283 k/mm3 (150-375); Red Blood Count 3.52 M/mm3 (4.6-6.20); Red Cell Distribution Width 19.9 % (11.5-14.5); White Blood Count 16.8 K/mm3 (4.5-10.0)
[2021-02-02 05:31] LABS: Albumin Level 3.3 g/dL (3.5-5.1); Alkaline Phosphatase 102 U/L (38-126); Anion Gap 15 mmol/L (8-16); Bilirubin,Total 3.8 mg/dL (0.2-1.3); Blood Urea Nitrogen 44 mg/dL (9-20); Calcium 5.4 mg/dL (8.4-10.2); Carbon Dioxide 27 mmol/L (22-30); Chloride 89 mmol/L (98-107); Creatine Kinase 317 U/L (55-170); Estimated CRCL calculation 18 ml/min; Estimated Glomerular Filt Rate 14; Glucose 177 mg/dL (75-110); Magnesium 1.7 mg/dL (1.6-2.3); Phosphorus 8.2 mg/dL (2.5-4.5); Potassium 4.8 mmol/L (3.4-5.0); Sodium 131 mmol/L (137-145)
[2021-02-02 05:54] LABS: Alanine Aminotransferase 2805 U/L (4-50)
[2021-02-02 06:05] LABS: Aspartate Amino Transferase 6249 U/L (17-59)
[2021-02-02] MEDS: CALCIUM CHLOR 1,000MG/100ML NS 1,000 MG/100 ML BAG 100 MG IVPB (09:05)
[2021-02-02] MEDS: PANTOPRAZOLE SODIUM IV 40 MG VIAL IV PUSH (09:05)
[2021-02-02] MEDS: ASPIRIN 325 MG TABLET PO (09:05)
[2021-02-02] MEDS: MAGNESIUM SULF 1 GM/D5W 100 ML 1 GM/100 ML BAG IVPB (09:06)
--- NOTE | 2021-02-02 09:33 | WPDINTPN ---
Progress Note: A&P Assessment and Plan (1) Septic shock: Code(s): A41.9 - Sepsis, unspecified organism; R65.21 - Severe sepsis with septic shock Status: Acute Assessment and Plan: Mixed septic and cardiogenic shock Patient received 1 L fluid bolus in the ED due to concern of congestive heart failure. Another 1 L bolus was given in ICU y on admission Patient was started on conservative IV fluids with bicarb and dextrose 3/5 Patient was not fluid responsive on NICOM assessment and CVP was 27-30. No further fluid this were given Will hold further IV fluids as patient is overall volume overloaded and Check NICOM Mixed venous checked from central line showed SCV O2 of 56% Hemodynamics have improved now and patient is now off of all vasopressors Continue to monitor Continue hydrocortisone for today and switched to Solu-Medrol tomorrow for his COPD Maintain map Persistent elevated lactic acid likely secondary to cirrhosis as patient's pressor requirement has gone down and he has clinically improved (2) Acute respiratory failure: Code(s): J96.00 - Acute respiratory failure, unspecified whether with hypoxia or hypercapnia Status: Acute Assessment and Plan: Acute Respiratory failure secondary to pneumonia pulmonary, COPD, pleural effusion Patient was on BiPAP until 01/31. Now saturating well on nasal cannula and in no respiratory distress Continue close monitoring ABG and PCXR reviewed CT Chest 1. Moderate cardiomegaly. Large right pleural effusion, right middle and lower lobe collapse. 2. Small regions bilateral peripheral atelectasis or pneumonia. Thoracentesis planned for the pleural effusion on the right (3) PNA (pneumonia): Code(s): J18.9 - Pneumonia, unspecified organism Status: Acute Assessment and Plan: Empiric broad-spectrum antibiotics vancomycin and Zosyn Cultures are negative as of now (4) COPD (chronic obstructive pulmonary disease): Code(s): J44.9 - Chronic obstructive pulmonary disease, unspecified Status: Acute Assessment and Plan: Continue steroids, bronchodilators (5) Pleural effusion: Code(s): J90 - Pleural effusion, not elsewhere classified Status: Acute Assessment and Plan: Thoracentesis planned Vitamin K was given 01/31. INR pending May need FFP before procedure. I have not been aggressive in getting thoracentesis as patient is otherwise saturating well on 2-3 L nasal cannula and is not in any respiratory distress (6) SVT (supraventricular tachycardia): Code(s): I47.1 - Supraventricular tachycardia Status: Acute Assessment and Plan: Status post 3 dose of adenosine at the outside hospital ED Patient was started on amiodarone infusion. Patient converted to normal sinus rhythm Amiodarone was discontinued after 24 hours due to elevated liver enzymes and monitor Cardiology following Echo reviewed (7) Coagulopathy: Code(s): D68.9 - Coagulation defect, unspecified Status: Acute Assessment and Plan: INR elevated patient not on any anticoagulation suspect secondary to liver disease Vitamin K 10 mg subcu given 3/4 Repeat INR pending May need FFP (8) Elevated liver transaminase level: Code(s): R74.01 - Elevation of levels of liver transaminase levels Status: Acute Assessment and Plan: Significantly elevated liver enzymes likely consistent with shock liver with component of hepatic congestion. Patient admits to taking 2 tablets of Tylenol a day on most days for his migraine headache but denies any increase usage recently. Tylenol level was normal CT abdomen reviewed Ultrasound right upper quadrant of abdomen showed no portal vein thrombosis IMPRESSION: 1. Biphasic portal venous waveform, likely indicating portal hypertension. Probably cirrhosis. 2. Cholelithiasis. Gallbladder wall thickening which is nonspecific in setting of ascites and absence of sonographic Mack's s
[2021-02-02 09:58] LABS: INR 13.7; Prothrombin Time 99.8 Seconds (11.1-14.7)
--- NOTE | 2021-02-02 10:29 | PM.EVENT ---
Event Note Event Note Event Note: INR today is 13.7 which is worse than yesterday. Fibrinogen was 224. I discussed with patient and explained risks and benefits and alternatives of transfusion with FFP. Patient verbalized understanding and agreeable. Will transfuse 3 units of FFP and recheck coags. Will also give another dose of vitamin K p.o.
--- NOTE | 2021-02-02 10:54 | PM.IMPN ---
Progress Note: A&P Assessment and Plan (1) Septic shock: Code(s): A41.9 - Sepsis, unspecified organism; R65.21 - Severe sepsis with septic shock Status: Acute Assessment and Plan: 02/02/21 10:54 Keith Jha is a 60 year old male with a past medical history CABG in 2018, COPD, and recently he was treated for COVID-19 at [facility] and discharged about a week ago, patient again presented to the hospital with cough shortness of breath, his lactic acid was elevated to 10, he was hypotensive and, metabolic acidosis, in sepsis patient was transferred to the [facility], patient was placed on bicarb drip, and started the patient on Zosyn and vancomycin, patient also developed supraventricular tachycardia and was given adenosine to abort the rhythm and now is in sinus rhythm, currently on amiodarone infusion, and seen by environmental air specialist, patient also has a large right-sided pleural effusion and will need thoracentesis, patient INR is 2.7 and given vitamin K, patient is a very poor historian sleepy unable to provide detailed review of symptoms or history, patient seen by sludge filtration attendant and discussed and appreciate. 02/01 patient appears more somnolent and ill, patient with elevated liver enzyme and bili, patient had abdominal US and showed Biphasic portal venous waveform, likely indicating portal hypertension. Probably cirrhosis. Chief Human Resources Officer suspect Tylenol toxicity however acetaminophen levels were low however sludge filtration attendant had decided to start the patient on acetadote for hepatoprotaction effect for next 24hrs, patient still hypotensive however patient volume overloaded and urine output is poor unable to give fluid patient is on Levophed and vasopressin as well as hydrocortisone, patient with a pleural effusion in need of thoracentesis however patient is elevated INR of 6 today, patient was given vitamin K without improvement, sludge filtration attendant will give FFP and will monitor, prognosis is poor will continue to monitor. 02/02 patient with worsening liver function today's INR 13.7 compared 6 yesterday and 2 on arrival, discussed with sludge filtration attendant patient received 3 units of FFP and vitamin K patient is in need thoracentesis, cardiology and sludge filtration attendant suspect the prognosis is poor patient is more somnolent today, received Mucomyst on 02/01, appreciate sludge filtration attendant will continue to monitor (2) Acute respiratory failure: Code(s): J96.00 - Acute respiratory failure, unspecified whether with hypoxia or hypercapnia Status: Acute Assessment and Plan: Most likely secondary to large pleural effusion on the right side, pneumonia and exacerbation of COPD, patient is refusing BiPAP, on nasal cannula will continue to monitor (3) PNA (pneumonia): Code(s): J18.9 - Pneumonia, unspecified organism Status: Acute Assessment and Plan: Sepsis most likely secondary to pneumonia, Most likely hospital-acquired pneumonia being treated with Zosyn and vancomycin (4) COPD (chronic obstructive pulmonary disease): Code(s): J44.9 - Chronic obstructive pulmonary disease, unspecified Status: Acute Assessment and Plan: Long history of smoking, patient is treated with a steroid and updraft (5) Pleural effusion: Code(s): J90 - Pleural effusion, not elsewhere classified Status: Acute Assessment and Plan: Patient with large right-sided pleural effusion will need thoracentesis, INR supratherapeutic patient is given vitamin K further recommendation to (6) Chest pain: Code(s): R07.9 - Chest pain, unspecified Status: Acute Assessment and Plan: Patient with history of CABG now with chest and elevated tropes patient is seen by environmental air specialist further recommendation to follow (7) SVT (supraventricular tachycardia): Code(s): I47.1 - Supraventricular tachycardia Status: Acute Assessment and Plan: Supple ventricle tachycardia most likely secondary to hypoxia indra
--- NOTE | 2021-02-02 11:09 | PM.PNCARD ---
Progress Note: A&P Additional Plan 60-year-old man with: Significant ischemic cardiomyopathy and remote history of bypass grafting patient now has a picture of low cardiac output, cardiogenic shock and has elevated transaminases, coagulopathy and advancing renal failure. We will start him on dobutamine at low dose today to try and augment cardiac output. Prognosis appears to be quite poor. Sameer Zhou MD [facility] Subjective Date/time seen: Date of service: 02/02/21 11:09 Interval history: Follow-up visit in this 60-year-old man with: Ischemic heart disease with previous CABG in the remote past. Patient now following recent [place] virus infection has serious problem with picture of cardiogenic shock he has very high transaminases and advancing renal insufficiency. Given his very low ejection fraction discussed the option of I inotropic support with shearing machine tender. Exam Const: General: no acute distress HENMT: Mouth: Yes dry mucous membranes Eyes: Sclera: sclerae normal Neck: Neck: supple and no JVD Resp: Effort & Inspection: normal respiratory effort Cardio: Rate: regular rate Rhythm: regular rhythm GI: GI Palp: Yes Soft to palpation Auscultation: normal bowel sounds Skin: General skin exam: normal color Neuro: Cognition (Neuro): normal cognition Objective Data Vital Signs Vital Signs: Vital Signs - 24 hr 02/01/21 12:00 02/01/21 12:35 02/01/21 14:00 Temperature 36.5 C 36.0 C L Pulse Rate 78 77 77 Respiratory Rate 21 H 21 H Blood Pressure 116/78 105/64 102/71 Pulse Oximetry 96 95 02/01/21 14:52 02/01/21 16:00 02/01/21 16:29 Temperature 35.9 C L Pulse Rate 78 76 80 Respiratory Rate 13 Blood Pressure 99/78 L 100/75 109/98 H Pulse Oximetry 98 02/01/21 17:52 02/01/21 18:00 02/01/21 18:34 Temperature 35.8 C L Pulse Rate 81 79 80 Respiratory Rate 23 H Blood Pressure 108/72 100/75 111/80 Pulse Oximetry 98 02/01/21 18:46 02/01/21 20:00 02/01/21 22:00 Temperature 36.0 C L 36.3 C L Pulse Rate 83 83 85 Respiratory Rate 18 16 Blood Pressure 103/72 99/74 L 100/77 Pulse Oximetry 94 97 02/01/21 22:10 02/02/21 00:00 02/02/21 02:00 Temperature 36.2 C L 36.3 C L Pulse Rate 80 83 82 Respiratory Rate 19 12 Blood Pressure 90/63 L 91/63 L Pulse Oximetry 97 98 97 02/02/21 04:00 02/02/21 06:00 02/02/21 08:00 Temperature 36.2 C L 36.1 C L Pulse Rate 82 84 84 Respiratory Rate 16 25 H 22 H Blood Pressure 102/77 97/75 L 109/74 Pulse Oximetry 98 96 90 02/02/21 08:21 02/02/21 10:00 Temperature 36.1 C L Pulse Rate 83 Respiratory Rate 14 Blood Pressure 103/76 Pulse Oximetry 90 96 Intake/Output Intake/Output: Intake & Output 01/30/21 01/31/21 02/01/21 02/02/21 23:59 23:59 23:59 23:59 Intake Total 2254 2815.00 1911 Output Total 20 25 15 Balance 2234 2790.00 1896 Meds/Results Medications: Active Medications Generic Name Dose Route Start Last Admin Trade Name Freq PRN Reason Stop Dose Admin Aspirin 325 mg 02/01/21 08:00 02/02/21 09:05 Aspirin 325 Mg Tablet PO 325 mg DAILY@0800 SAYDA Administration Dextrose 12.5 gm 01/31/21 06:40 01/31/21 06:58 Dextrose 50% 25 Gm/50 Ml Syringe IV PUSH 12.5 gm PRN PRN Administration Hypoglycemia Protocol Glucagon 1 mg 01/31/21 06:40 Glucagon For Inj 1 Mg Vial IM PRN PRN Hypoglycemia Protocol Glucose 15 gm 01/31/21 06:40 Glucose Oral Gel 15 Gm Of Glucse In 37.5 Gm Tube PO PRN PRN Hypoglycemia Protocol Hydrocortisone Sodium Succinate 100 mg 01/31/21 14:00 02/02/21 05:04 Hydrocortisone Sodium Succinate 100 Mg/2 Ml Vial IV PUSH 100 mg Q8HR SAYDA Administration Norepinephrine Bitartrate 8 mg in 250 mls @ 0 mls/hr 01/31/21 05:55 02/02/21 11:06 Levophed 8 Mg/D5w 250 Ml IV CONT Not Given .Q0M SAYDA Protocol 0 MCG/MIN Dextrose 1,000 mls @ 100 mls/hr 01/31/21 06:40 Dextrose 5% 1,000 Ml IVPB PRN PRN
--- NOTE | 2021-02-02 11:19 | PM.PNNEP ---
Progress Note: A&P Assessment and Plan (1) CONI (acute kidney injury): Code(s): N17.9 - Acute kidney failure, unspecified Status: Acute Assessment and Plan: The patient has acute kidney injury. renal ultrasound is unremarkable. Thurman has been replaced. Urine electrolytes are non pre renal but he did receive a dose of Lasix before these were done. Urine protein is a whopping 21,000! CK is slightly high and improved today. This is not enough to affect his kidneys. Baseline creatinine is 1.3. The patient has poor cardiac output, cirrhosis, Prior metabolic acidosis, respiratory failure, and possibly sepsis. he probably just has ATN or possibly cortical necrosis from all these issues. The fact that he is making so little urine suggests the latter. Dobutamine may not be safe because of the history of SVT. Will see how he does with diuretics and consider dialysis if things do not improve. (2) CHF (congestive heart failure): Code(s): I50.9 - Heart failure, unspecified Status: Acute Assessment and Plan: EF is only 15%. Cardiology is being consulted (3) CAD (coronary artery disease): Code(s): I25.10 - Atherosclerotic heart disease of [place] coronary artery without angina pectoris Status: Acute Assessment and Plan: he had a bypass in 2003 (4) SVT (supraventricular tachycardia): Code(s): I47.1 - Supraventricular tachycardia Status: Acute Assessment and Plan: this resolved with Amiodarone (5) Cirrhosis: Code(s): K74.60 - Unspecified cirrhosis of liver Status: Acute Assessment and Plan: this is due to hepatitis C. he did not drink a lot before that. (6) COPD (chronic obstructive pulmonary disease): Code(s): J44.9 - Chronic obstructive pulmonary disease, unspecified Status: Acute Assessment and Plan: He has stop smoking he says Subjective Date/time seen: 02/02/21 11:19 Interval history: patient feels about the same today. Generally weak. Lying flat in bed on a little oxygen but not short of breath. He has a little bit of belly pain. Review of Systems Cardiovascular: Cardiovascular: Reports no additional cardiovascular complaints Respiratory: Respiratory: Reports no additional respiratory complaints Gastrointestinal: Gastrointestinal: Reports no additional gastrointestinal complaints Genitourinary: Genitourinary: Reports no additional male genitourinary complaints Exam Narrative: Exam Narrative: WDWN in NAD skin no rash Or subcu nodules head ncat lungs clear on left and decreased breath sounds on the right cor reg no rub abd BS+ nontender and soft. Somewhat distended. ext no edema. Objective Data Vital Signs Vital Signs: Vital Signs - 24 hr 02/01/21 12:00 02/01/21 12:35 02/01/21 14:00 Temperature 36.5 C 36.0 C L Pulse Rate 78 77 77 Respiratory Rate 21 H 21 H Blood Pressure 116/78 105/64 102/71 Pulse Oximetry 96 95 02/01/21 14:52 02/01/21 16:00 02/01/21 16:29 Temperature 35.9 C L Pulse Rate 78 76 80 Respiratory Rate 13 Blood Pressure 99/78 L 100/75 109/98 H Pulse Oximetry 98 02/01/21 17:52 02/01/21 18:00 02/01/21 18:34 Temperature 35.8 C L Pulse Rate 81 79 80 Respiratory Rate 23 H Blood Pressure 108/72 100/75 111/80 Pulse Oximetry 98 02/01/21 18:46 02/01/21 20:00 02/01/21 22:00 Temperature 36.0 C L 36.3 C L Pulse Rate 83 83 85 Respiratory Rate 18 16 Blood Pressure 103/72 99/74 L 100/77 Pulse Oximetry 94 97 02/01/21 22:10 02/02/21 00:00 02/02/21 02:00 Temperature 36.2 C L 36.3 C L Pulse Rate 80 83 82 Respiratory Rate 19 12 Blood Pressure 90/63 L 91/63 L Pulse Oximetry 97 98 97 02/02/21 04:00 02/02/21 06:00 02/02/21 08:00 Temperature 36.2 C L 36.1 C L Pulse Rate 82 84 84 Respiratory Rate 16 25 H 22 H Blood Pressure 102/77 97/75 L 109/74 Pulse Oximetry 98 96 90 02/02/21 08:21 03
[2021-02-02] MEDS: PHYTONADIONE 5 MG TABLET 10 MG PO (11:28)
[2021-02-02] MEDS: SODIUM CHLORIDE 0.9% IV 250 ML 30 ML IV CONT (11:29)
[2021-02-02] MEDS: DOBUTamine 250 MG/D5W 250 ML 250 MG/250 ML BAG 13.14 MG IV CONT (11:37)
--- NOTE | 2021-02-02 12:48 | PCOTNOTE ---
OT evaluation attempted. Hold at this time per nurse. Will continue to attempt.
--- NOTE | 2021-02-02 13:24 | PCPTNOTE ---
Orders received...deferred today by nursing...nursing does not want the patient placed in a position in which he might bleed...will attempt tomorrow as able
[2021-02-02] MEDS: FUROSEMIDE INJ 100 MG/10 ML VIAL 80 MG IV PUSH ×2 (14:42→21:37)
[2021-02-02 17:13] LABS: Glucose Point of Care 167 (65-105)
[2021-02-02 19:03] LABS: Prothrombin Time 39.1 Seconds (11.1-14.7)
[2021-02-02] MEDS: DOBUTamine 250 MG/D5W 250 ML 250 MG/250 ML BAG 26.28 MG IV CONT (21:28)
[2021-02-03] VITALS (19 sets, daily range): BP systolic 101–117; BP diastolic 71–83; PULSE 89–113; RESP 12–30; TEMP 35.9–36.5; O2SAT 91–99
[2021-02-03 00:23] LABS: Glucose Point of Care 165 (65-105)
[2021-02-03 06:05] LABS: Hematocrit 22.9 % (42.0-52.0); Mean Corpuscular HGB Conc 30.6 g/dl (32-36); Mean Corpuscular Hemoglobin 23.2 pg (26-34); Mean Corpuscular Volume 75.8 fl (80-100); Mean Platelet Volume 11.1 fl (7.4-10.4); Platelet Count Result 147 k/mm3 (150-375); Red Blood Count 3.02 M/mm3 (4.6-6.20); White Blood Count 8.3 K/mm3 (4.5-10.0)
[2021-02-03 06:16] LABS: INR 4.6; Prothrombin Time 43.8 Seconds (11.1-14.7)
[2021-02-03] MEDS: HYDROCORTISONE SODIUM SUCCINATE 100 MG/2 ML VIAL IV PUSH (06:29)
[2021-02-03] MEDS: CENTRAL LINE FLUSH 10 ML IV PUSH ×3 (06:30→20:00)
[2021-02-03 06:52] LABS: Albumin Level 3.3 g/dL (3.5-5.1); Alkaline Phosphatase 106 U/L (38-126); Anion Gap 14 mmol/L (8-16); Bilirubin,Total 4.4 mg/dL (0.2-1.3); Blood Urea Nitrogen 56 mg/dL (9-20); Calcium 6.2 mg/dL (8.4-10.2); Carbon Dioxide 28 mmol/L (22-30); Chloride 86 mmol/L (98-107); Estimated CRCL calculation 14 ml/min; Estimated Glomerular Filt Rate 11; Glucose 143 mg/dL (75-110); Magnesium 1.8 mg/dL (1.6-2.3); Phosphorus 7.9 mg/dL (2.5-4.5); Potassium 4.3 mmol/L (3.4-5.0); Sodium 128 mmol/L (137-145)
[2021-02-03] MEDS: DOBUTamine 250 MG/D5W 250 ML 250 MG/250 ML BAG 26.28 MG IV CONT (07:22)
[2021-02-03 07:26] LABS: Alanine Aminotransferase 1845 U/L (4-50); Aspartate Amino Transferase 2467 U/L (17-59)
--- NOTE | 2021-02-03 08:40 | PCOTNOTE ---
Attempted OT evaluation, but unable to complete due to declining medical status. Spoke with physician, physician placing therapy on hold at this time.
--- NOTE | 2021-02-03 08:40 | PCPTNOTE ---
patient's medical status is declining...spoke with MD, and he will order HOLD PT/OT orders until patient's medical circumstances improve...will be glad to resume therapy at this time.
[2021-02-03] MEDS: ASPIRIN 325 MG TABLET PO (08:58)
[2021-02-03] MEDS: methylPREDNISolone SOD SUCC 40 MG VIAL IV PUSH (08:58)
[2021-02-03] MEDS: PANTOPRAZOLE SODIUM IV 40 MG VIAL IV PUSH ×2 (08:58→20:00)
[2021-02-03] MEDS: CALCIUM CHLOR 1,000MG/100ML NS 1,000 MG/100 ML BAG 100 MG IVPB (08:58)
--- NOTE | 2021-02-03 09:09 | WPDINTPN ---
Progress Note: A&P Assessment and Plan (1) Septic shock: Code(s): A41.9 - Sepsis, unspecified organism; R65.21 - Severe sepsis with septic shock Status: Acute Assessment and Plan: Mixed septic and cardiogenic shock Patient received 1 L fluid bolus in the ED due to concern of congestive heart failure. Another 1 L bolus was given in ICU y on admission Patient was started on conservative IV fluids with bicarb and dextrose 3/ Patient was not fluid responsive on NICOM assessment and CVP was 27-30. No further fluid this were given Mixed venous checked from central line showed SCV O2 of 56% 02/02 Hemodynamics have improved now and patient is now off of all vasopressors. Dobutamine infusion started for positive inotrophic support with no major benefit except worsening of tachycardia and PVCs. Will discontinue at this time Continue to monitor Sweats hydrocortisone to Solu-Medrol tomorrow for his COPD Maintain map (2) Acute respiratory failure: Code(s): J96.00 - Acute respiratory failure, unspecified whether with hypoxia or hypercapnia Status: Acute Assessment and Plan: Acute Respiratory failure secondary to pneumonia pulmonary, COPD, pleural effusion Patient was on BiPAP until 01/31. Now saturating well on nasal cannula and in no respiratory distress Continue close monitoring ABG and PCXR reviewed CT Chest 1. Moderate cardiomegaly. Large right pleural effusion, right middle and lower lobe collapse. 2. Small regions bilateral peripheral atelectasis or pneumonia. Thoracentesis planned for the pleural effusion on the right once coagulopathy improves (3) PNA (pneumonia): Code(s): J18.9 - Pneumonia, unspecified organism Status: Acute Assessment and Plan: Empiric broad-spectrum antibiotics vancomycin and Zosyn Cultures are negative as of now. I will discontinue vancomycin and continue Zosyn for now (4) COPD (chronic obstructive pulmonary disease): Code(s): J44.9 - Chronic obstructive pulmonary disease, unspecified Status: Acute Assessment and Plan: Continue steroids, bronchodilators (5) Pleural effusion: Code(s): J90 - Pleural effusion, not elsewhere classified Status: Acute Assessment and Plan: Thoracentesis planned once coagulopathy resolves (6) CONI (acute kidney injury): Code(s): N17.9 - Acute kidney failure, unspecified Status: Acute Assessment and Plan: Reviewed records from [place] patient was admitted with COVID last month and also had hyperkalemia with acute kidney injury. At the time of discharge patient was continued on low-dose lisinopril. His creatinine was around 1.3 at the time of discharge It is possible the patient has been having worsening of his creatinine since discharge which was compounded by septic shock and poor cardiac output from congestive heart failure Creatinine continues to climb. Urine output is poor Hold further IV fluid with bicarb due to volume overload and CHF CT abdomen pelvis and ultrasound shows no hydronephrosis Thurman catheter replaced 02/01 CK level was minimally elevated Patient is now off vasopressors. Repeat Lasix given yesterday with only small amount of urine output Patient will need hemodialysis. Monitor urine output and electrolytes Nephrology is following Will consult general surgery for tunnel dialysis catheter. Patient is coagulopathic and may need FFP before procedure (7) Hyperkalemia: Code(s): E87.5 - Hyperkalemia Status: Acute Assessment and Plan: Resolved with Kayexalate and bicarb Monitor (8) Coagulopathy: Code(s): D68.9 - Coagulation defect, unspecified Status: Acute Assessment and Plan: INR elevated patient not on any anticoagulation suspect secondary to liver disease Vitamin K 10 mg subcu given 01/31 Patient was given 3 units of FFP and another 10 mg of vitamin K on 02/02 No obvious bleeding at this time Monitor (9) Elevated live
--- NOTE | 2021-02-03 09:29 | PM.PNCARD ---
Progress Note: A&P Additional Plan 60-year-old man with: A mixture of very serious comorbidities including ischemic heart disease, ischemic cardiomyopathy now probably worsened by recent [place] virus infection. He also has chronic COPD and alcoholic liver disease with cirrhosis. Patient has the picture of shock with multiorgan system failure his survival of this event is very doubtful in my opinion. Because of his severe comorbidities I do not believe this gentleman is a reasonable candidate for advanced hemodynamics support such as ECMO as this will have nothing to do with resolving his cardiomyopathy or his chronic liver disease. These problems are not reversible. The patient/family were considering comfort measures and altering his code status which I think would be a very good idea. He still remains a full code patient at this time. I believe the current plans are to consider starting dialysis. Sameer Zhou MD [facility] Subjective Date/time seen: Date of service: 02/03/21 09:29 Interval history: Follow-up visit in this 60-year-old man with: Ischemic heart disease with previous CABG in the remote past. Patient now following recent [place] virus infection has serious problem with picture of cardiogenic shock he has very high transaminases and advancing renal insufficiency. 02/03/2021: Try treating the patient with dobutamine yesterday to augment cardiac output in hopes of turning around renal failure. This provided no benefit at all. As expected he became rather tachycardic and response to the dobutamine but there was no increase in urinary output and creatinine continues to climb as rapidly as possible. He is still resting comfortably in bed and does not appear to be in any other distress offers no specific complaints this morning Exam Const: General: comfortable, no acute distress and in distress Other: Chronically ill-appearing 60-year-old man in the ICU currently offering no complaints HENMT: General nose exam: no epistaxis Mouth: Yes dry mucous membranes Eyes: Sclera: sclerae normal Pupils: Equal, round and reactive pupils present Neck: Neck: supple and no JVD Other: Carotid upstrokes are diminished in volume but normal in upstroke Resp: Effort & Inspection: normal respiratory effort Auscultation: rales and diminished lung sounds Other: Breath sounds are distant in both lung powers with diminished breath sounds Cardio: Rate: regular rate Rhythm: regular rhythm Other: PMI laterally displaced and enlarged summation gallop noted GI: Auscultation: normal bowel sounds Urinary Catheter: Urinary Catheter: patent and draining Skin: General skin exam: normal color Neuro: Cranial nerves: Yes Equal, round and reactive pupils present Cognition (Neuro): normal cognition Speech: normal speech Motor exam (neuro): 5/5 motor strength present throughout Extrem: Other: No peripheral edema Psych: Affect: normal affect Objective Data Vital Signs Vital Signs: Vital Signs - 24 hr 02/02/21 10:00 02/02/21 12:00 02/02/21 12:38 Temperature 36.1 C L 36.1 C L 35.9 C L Pulse Rate 83 81 81 Respiratory Rate 14 10 L 10 L Blood Pressure 103/76 114/77 102/71 Pulse Oximetry 96 100 100 02/02/21 13:00 02/02/21 13:56 02/02/21 14:00 Temperature 35.9 C L 35.8 C L Pulse Rate 87 85 85 Respiratory Rate 17 10 L Blood Pressure 117/74 112/73 Pulse Oximetry 96 99 02/02/21 14:06 02/02/21 14:15 02/02/21 15:00 Temperature 35.8 C L 35.8 C L 35.8 C L Pulse Rate 85 92 92 Respiratory Rate 10 L 18 17 Blood Pressure 112/73 123/77 106/75 Pulse Oximetry 99 93 94 02/02/21 15:42 02/02/21 16:00 02/02/21 17:01 Temperature 35.8 C L 35.9 C L 35.9 C L Pulse Rate 90 91 91 Respiratory Rate 17 17 17 Blood Pressure 103/71 114/86 114/86 Pulse Oximetry 90 94 94 02/02/21 17:16 02/02/21 18:00 02/02/21 18:41 Temperature 35.9 C L 35.8 C L 35.9 C L Pulse Rate 89 91 87 Respiratory Rate 12 17 11 L Blood Pressure 110/74 101/77 112/83
--- NOTE | 2021-02-03 11:43 | PM.PNNEP ---
Progress Note: A&P Assessment and Plan (1) CONI (acute kidney injury): Code(s): N17.9 - Acute kidney failure, unspecified Status: Acute Assessment and Plan: The patient has acute kidney injury. renal ultrasound is unremarkable. Thurman has been replaced. Urine electrolytes are non pre renal but he did receive a dose of Lasix before these were done. Urine protein is a whopping 21,000! CK is slightly high and improved today. This is not enough to affect his kidneys. Dobutamine and diuretics were tried yesterday but no urine output resulted. Baseline creatinine is 1.3. several things are contributing to the kidney failure. Very poor cardiac output makes him pre renal. Very poor liver function also contributes to underfilling and pre renal factors. This could be hepatorenal syndrome as well however the high urine sodium speaks against this. Cortical necrosis could have happened. That would explain the very low urine output. This could just be severe ATN. At this point he is a severely ill man. He has very poor cardiac output which is not treatable and will not get better. He also has severe cirrhosis with high liver enzymes which will also not get better in all likelihood. Now he has renal failure and is close to needing dialysis. It may be difficult to do dialysis because of low blood pressure even on a 1 time basis. However historically patient is in his condition live a very short time even with dialysis and so this would be a lot of risk and suffering on his part for later very little gain. If this were a reversible cause then possibly we might be able to get him through this but still his long-term prognosis would be poor. [facility] , even without kidney failure. Will check a renal scan for flow and function tomorrow. If that shows uptake without excretion then there might be some low chance of recovery of kidney function. If it shows no blood floor very little blood flow then there be very little chance of recovery. Either way I think his prognosis is grim and there is a strong argument for palliative care and hospice. Discussed at length with Dr. Donohue. (2) CHF (congestive heart failure): Code(s): I50.9 - Heart failure, unspecified Status: Acute Assessment and Plan: EF is only 15%. cardiology is on the case Dobutamine was tried but just caused ectopy so this was discontinued. (3) CAD (coronary artery disease): Code(s): I25.10 - Atherosclerotic heart disease of [place] coronary artery without angina pectoris Status: Acute Assessment and Plan: he had a bypass in 2003 (4) SVT (supraventricular tachycardia): Code(s): I47.1 - Supraventricular tachycardia Status: Acute Assessment and Plan: this resolved with Amiodarone (5) Cirrhosis: Code(s): K74.60 - Unspecified cirrhosis of liver Status: Acute Assessment and Plan: this is due to hepatitis C. he did not drink a lot before that. Liver enzymes are improving, but his bilirubin continues to climb. (6) COPD (chronic obstructive pulmonary disease): Code(s): J44.9 - Chronic obstructive pulmonary disease, unspecified Status: Acute Assessment and Plan: He has stop smoking he says Subjective Date/time seen: 02/03/21 11:43 Interval history: patient feels about the same today. Generally weak. Lying flat in bed on a little oxygen but not short of breath. His belly is better today. No chest pain or shortness of breath Exam Narrative: Exam Narrative: WDWN in NAD skin no rash Or subcu nodules head ncat lungs clear on left and decreased breath sounds on the right cor reg no rub abd BS+ nontender and soft. Somewhat distended. ext 1+ presacral edema. Objective Data Vital Signs Vital Signs: Vital Signs - 24 hr 02/02/21 12:00 02/02/21 12:38 02/02/21
[2021-02-03 12:18] LABS: Hematocrit 24.7 % (42.0-52.0); Hemoglobin 7.5 g/dL (14.0-18.0); Mean Corpuscular HGB Conc 30.4 g/dl (32-36); Mean Corpuscular Hemoglobin 23.2 pg (26-34); Mean Corpuscular Volume 76.5 fl (80-100); Mean Platelet Volume 11.4 fl (7.4-10.4); Platelet Count Result 152 k/mm3 (150-375); Red Blood Count 3.23 M/mm3 (4.6-6.20); Red Cell Distribution Width 19.3 % (11.5-14.5)
[2021-02-03 12:28] LABS: Glucose Point of Care 113 (65-105)
--- NOTE | 2021-02-03 12:35 | PM.IMPN ---
Progress Note: A&P Assessment and Plan (1) Septic shock: Code(s): A41.9 - Sepsis, unspecified organism; R65.21 - Severe sepsis with septic shock Status: Acute Assessment and Plan: 02/03/21 12:36 Keith Jha is a 60 year old male with a past medical history CABG in 2018, COPD, and recently he was treated for COVID-19 at [facility] and discharged about a week ago, patient again presented to the hospital with cough shortness of breath, his lactic acid was elevated to 10, he was hypotensive and, metabolic acidosis, in sepsis patient was transferred to the [facility], patient was placed on bicarb drip, and started the patient on Zosyn and vancomycin, patient also developed supraventricular tachycardia and was given adenosine to abort the rhythm and now is in sinus rhythm, currently on amiodarone infusion, and seen by receiving tank operator, patient also has a large right-sided pleural effusion and will need thoracentesis, patient INR is 2.7 and given vitamin K, patient is a very poor historian sleepy unable to provide detailed review of symptoms or history, patient seen by overnight stocker and discussed and appreciate. 02/01 patient appears more somnolent and ill, patient with elevated liver enzyme and bili, patient had abdominal US and showed Biphasic portal venous waveform, likely indicating portal hypertension. Probably cirrhosis. Tax Representative suspect Tylenol toxicity however acetaminophen levels were low however overnight stocker had decided to start the patient on acetadote for hepatoprotaction effect for next 24hrs, patient still hypotensive however patient volume overloaded and urine output is poor unable to give fluid patient is on Levophed and vasopressin as well as hydrocortisone, patient with a pleural effusion in need of thoracentesis however patient is elevated INR of 6 today, patient was given vitamin K without improvement, overnight stocker will give FFP and will monitor, prognosis is poor will continue to monitor. 02/02 patient with worsening liver function today's INR 13.7 compared 6 yesterday and 2 on arrival, discussed with overnight stocker patient received 3 units of FFP and vitamin K patient is in need thoracentesis, cardiology and overnight stocker suspect the prognosis is poor patient is more somnolent today, received Mucomyst on 02/01, appreciate overnight stocker will continue to monitor. 02/03 patient with worsening liver function on 02/02 INR was 13.7 compared 6 on 02/01 and 2 on arrival, patient was given 3 units of FFP and to day his INR is 4.6 and not candidate for thoracentesis, patient was started on dobutamine drip and high dose IV lasix 80mg urine out is poor due to severe ischemic cardiomyopathy, overnight stocker and Nephrology recommending dialysis to improve currently function will follow, cardiology and overnight stocker suspect the prognosis is poor patient is more somnolent today, received Mucomyst on 02/01, appreciate overnight stocker will continue to monitor. (2) Acute respiratory failure: Code(s): J96.00 - Acute respiratory failure, unspecified whether with hypoxia or hypercapnia Status: Acute Assessment and Plan: Most likely secondary to large pleural effusion on the right side, pneumonia and exacerbation of COPD, patient is refusing BiPAP, on nasal cannula will continue to monitor (3) PNA (pneumonia): Code(s): J18.9 - Pneumonia, unspecified organism Status: Acute Assessment and Plan: Sepsis most likely secondary to pneumonia, Most likely hospital-acquired pneumonia being treated with Zosyn and vancomycin (4) COPD (chronic obstructive pulmonary disease): Code(s): J44.9 - Chronic obstructive pulmonary disease, unspecified Status: Acute Assessment and Plan: Long history of smoking, patient is treated with a steroid and updraft (5) Pleural effusion: Code(s): J90 - Pleural effusion, not elsewhere classified Status: Acute Assessment and Plan: Patient with lar
--- NOTE | 2021-02-03 13:22 | PM.CNGS ---
Assessment and Plan Assessment and plan (1) CONI (acute kidney injury): Code(s): N17.9 - Acute kidney failure, unspecified Status: Acute Assessment and Plan: I have reviewed the patient's history and lab findings. His renal function is worsening and he is now in need of hemodialysis. Nephrology has requested placement of tunneled dialysis catheter. Will make arrangements for this to be performed under IV sedation tomorrow. He is coagulopathic and has a significant history of cirrhosis. Will give patient another dose of vitamin K today and plan for plasma infusion tomorrow morning so that procedure can be done safely. I did discuss with patient that he is at some increased risk of bleeding complications with this procedure secondary to the cirrhosis and coagulopathy. (2) Septic shock: Code(s): A41.9 - Sepsis, unspecified organism; R65.21 - Severe sepsis with septic shock Status: Acute (3) Cirrhosis: Code(s): K74.60 - Unspecified cirrhosis of liver Status: Acute (4) History of hepatitis C: Code(s): Z86.19 - Personal history of other infectious and parasitic diseases Status: Acute (5) Coagulopathy: Code(s): D68.9 - Coagulation defect, unspecified Status: Acute History of Present Illness Consult details Consult date: 02/03/21 Reason for consult: other (dialysis access) Requesting physician: Damon Galdamez MD Narrative: This is a 60-year-old man who presented to the hospital with multiple medical problems and finding of septic shock. He has a history of cirrhosis and hepatitis C. his renal function has been gradual decline. Nephrology has been following patient and now they are recommending hemodialysis. His INR has been significantly elevated during this admission. He has already received doses of vitamin K and FFP. Review of Systems Review of Systems: All systems reviewed & are unremarkable except as noted in HPI and below Eyes: Eyes: Denies change in vision ENT: Denies hearing loss, Denies neck pain and Denies sore throat Cardiovascular: Cardiovascular: Denies chest pain and Denies dyspnea Respiratory: Respiratory: Denies cough, Denies dyspnea and Denies wheezing Genitourinary: Genitourinary: Denies hematuria and Denies dysuria Musculoskeletal: Musculoskeletal: Denies arthralgias, Denies joint swelling and Denies neck pain Allergic/Immunologic: Allergic/Immunologic: Denies wheezing PMFSH Past Medical History Medical History CAD (coronary artery disease) Cirrhosis COPD (chronic obstructive pulmonary disease) COVID-19 History of hepatitis C Shock liver Surgical History Surgical History Hx of CABG Family History Family History Father Lung cancer Grandparent Lung cancer Social History Social History Smoking packs per day: 1 Smoking cigarettes per day: 20.0 Years smoked: 46 Smoking pack-years: 46.00 Smoking status: Former smoker Tobacco type: cigarettes Smoking end date: 01/03/21 Alcohol intake: former Substance use: former Substance use type: marijuana Spiritual care concerns: No Meds Home Medications and Allergies Home Medications Medication Instructions Recorded Confirmed Type aspirin 81 mg PO DAILY 01/31/21 01/31/21 History cholecalciferol (vitamin D3) 50 mcg PO DAILY 01/31/21 01/31/21 History furosemide 40 mg PO DAILY 01/31/21 01/31/21 History lisinopril 2.5 mg PO DAILY 01/31/21 01/31/21 History pravastatin 40 mg PO DAILY 01/31/21 01/31/21 History Allergies Allergy/AdvReac Type Severity Reaction Status Date / Time No Known Allergies Allergy Verified 01/31/21 06:19 Vital Signs Vital Signs - 24 hr 02/02/21 13:56 02/02/21 14:00 02/02/21 14:06 Temperatur
[2021-02-03] MEDS: PHYTONADIONE 5 MG TABLET 10 MG PO (15:16)
[2021-02-03 16:48] LABS: Hepatitis C RNA, Quant PCR <15 IU/mL
[2021-02-03 17:48] LABS: Glucose Point of Care 119 (65-105)
[2021-02-03] MEDS: MORPHINE SULFATE (*CRX) 2 MG/ML INJ IV PUSH (21:28)
[2021-02-04] VITALS (44 sets, daily range): BP systolic 102–133; BP diastolic 50–94; PULSE 92–118; RESP 9–30; TEMP 36–37.2; O2SAT 90–100
[2021-02-04 00:16] LABS: Glucose Point of Care 122 (65-105)
[2021-02-04 03:44] LABS: Hematocrit 26.8 % (42.0-52.0); Hemoglobin 8.2 g/dL (14.0-18.0); Mean Corpuscular HGB Conc 30.6 g/dl (32-36); Mean Corpuscular Volume 75.3 fl (80-100); Mean Platelet Volume 11.3 fl (7.4-10.4); Platelet Count Result 176 k/mm3 (150-375); Red Blood Count 3.56 M/mm3 (4.6-6.20); Red Cell Distribution Width 19.4 % (11.5-14.5); White Blood Count 8.4 K/mm3 (4.5-10.0)
[2021-02-04 03:55] LABS: INR 3.7
[2021-02-04 03:58] LABS: Albumin Level 3.5 g/dL (3.5-5.1); Alkaline Phosphatase 117 U/L (38-126); Anion Gap 17 mmol/L (8-16); Blood Urea Nitrogen 73 mg/dL (9-20); Calcium 7.3 mg/dL (8.4-10.2); Carbon Dioxide 26 mmol/L (22-30); Chloride 86 mmol/L (98-107); Estimated CRCL calculation 11 ml/min; Estimated Glomerular Filt Rate 9; Glucose 119 mg/dL (75-110); Magnesium 1.9 mg/dL (1.6-2.3); Phosphorus 9.4 mg/dL (2.5-4.5); Potassium 4.8 mmol/L (3.4-5.0); Sodium 129 mmol/L (137-145)
[2021-02-04 04:04] LABS: Aspartate Amino Transferase 1410 U/L (17-59)
[2021-02-04 04:10] LABS: Alanine Aminotransferase 1509 U/L (4-50)
[2021-02-04] MEDS: CENTRAL LINE FLUSH 10 ML IV PUSH ×3 (06:02→22:48)
[2021-02-04] MEDS: PANTOPRAZOLE SODIUM IV 40 MG VIAL IV PUSH ×2 (07:52→22:48)
[2021-02-04] MEDS: SODIUM CHLORIDE 0.9% IV 250 ML 30 ML IV CONT ×2 (07:53→12:38)
[2021-02-04] MEDS: methylPREDNISolone SOD SUCC 40 MG VIAL IV PUSH (07:53)
--- NOTE | 2021-02-04 09:18 | WPDANESEPPF ---
Anes - Initial Pre Proc Eval Procedure: Operation Date: 02/04/21 09:30 Proposed Procedures p Placement Of Tunneled Dialysis Catheter - Cheo Medina DO Date/Time: 02/04/21 09:18 Surgeon: Sushant Urban MD Pre Op Diagnosis: Acute respiratory failure/septic shock Patient Data Age: 60 Gender: M Height: 5 ft 6 in Weight: 82.1 kg Last Vital Signs Temp 36.6 C 02/04/21 08:03 Pulse 97 02/04/21 08:03 Resp 23 H 02/04/21 08:03 BP 102/78 02/04/21 08:03 Pulse Ox 97 02/04/21 08:05 Allergies Allergy/AdvReac Type Severity Reaction Status Date / Time No Known Allergies Allergy Verified 01/31/21 06:19 Home Medications Medication Instructions Recorded Confirmed Type aspirin 81 mg PO DAILY 01/31/21 01/31/21 History cholecalciferol (vitamin D3) 50 mcg PO DAILY 01/31/21 01/31/21 History furosemide 40 mg PO DAILY 01/31/21 01/31/21 History lisinopril 2.5 mg PO DAILY 01/31/21 01/31/21 History pravastatin 40 mg PO DAILY 01/31/21 01/31/21 History Laboratory Tests 02/01/21 02/02/21 02/03/21 05:32 10:39 12:09 WBC 8.0 K/mm3 K/mm3 (4.5-10.0) RBC 3.23 M/mm3 L M/mm3 (4.6-6.20) Hgb 7.5 g/dL L g/dL (14.0-18.0) Hct 24.7 % L % (42.0-52.0) MCV 76.5 fl L fl (80-100) MCH 23.2 pg L pg (26-34) MCHC 30.4 g/dl L g/dl (32-36) RDW 19.3 % H % (11.5-14.5) Plt Count 152 k/mm3 k/mm3 (150-375) MPV 11.4 fl H fl (7.4-10.4) PT INR Sodium Potassium Chloride Carbon Dioxide Anion Gap BUN Creatinine Estim Creat Clear Calc Estimated GFR Glucose POC Capillary Glucose Calcium Phosphorus Magnesium Total Bilirubin AST ALT Alkaline Phosphatase Total Protein Albumin HCV RNA (PCR) IUs/ml <15 IU/mL IU/mL HCV RNA PCR log IUs/ml <1.18 log IU/mL log IU/mL Blood Type O Positive 02/03/21 02/03/21 02/03/21 12:13 17:44 23:58 WBC RBC Hgb Hct MCV MCH MCHC RDW Plt Count MPV PT INR Sodium Potassium Chloride Carbon Dioxide Anion Gap BUN Creatinine Estim Creat Clear Calc Estimated GFR Glucose POC Capillary Glucose 113 mg/dl H mg/dl 119 mg/dl H mg/dl 122 mg/dl H mg/dl (65-105) (65-105) (65-105) Calcium Phosphorus Magnesium Total Bilirubin AST ALT Alkaline Phosphatase Total Protein Albumin HCV RNA (PCR) IUs/ml HCV RNA PCR log IUs/ml Blood Type 02/04/21 02/04/21 02/04/21 03:39 03:39 03:39 WBC 8.4 K/mm3 K/mm3 (4.5-10.0) RBC 3.56 M/mm3 L M/mm3 (4.6-6.20) Hgb 8.2 g/dL L g/dL (14.0-18.0) Hct 26.8 % L % (42.0-52.0) MCV 75.3 fl L fl (80-100) MCH 23.0 pg L pg (26-34) MCHC 30.6 g/dl L g/dl (32-36) RDW 19.4 % H % (11.5-14.5) Plt Count 176 k/mm3 k/mm3 (150-375) MPV 11.3 fl H fl (7.4-10.4) PT 37.0 Seconds H Seconds (11.1-14.7) INR 3.7 Sodium 129 mmol/L L mmol/L (137-145) Potassium 4.8 mmol/L mmol/L (3.4-5.0) Chloride 86 mmol/L L mmol/L (98-107) Carbon Dioxide 26 mmol/L mmol/L (22-30) Anion Gap 17 mmol/L H mmol/L (8-16) BUN 73 mg/dL H D mg/dL (9-20) Creatinine 6.40 mg/dL H mg/dL
--- NOTE | 2021-02-04 09:44 | WPDHPUPDATE1 ---
History and Physical Update Update Date/Time: 02/04/21 09:44 History and Physical has been reviewed, including an updated exam of the patient. There are NO changes in the patient's condition. Risks, benefits, and alternatives have been discussed and questions answered. Patient agrees to proceed with procedure.
[2021-02-04] MEDS: SODIUM CHLORIDE 0.9% IV 500 ML 30 ML IV CONT (09:45)
[2021-02-04] MEDS: LIDO 1%/EPINEPHRINE 1:100,000 50 ML VIAL INFILTRATE (11:00)
[2021-02-04] MEDS: HEPARIN SODIUM 5,000 UNITS/ML VIAL 5000 UNITS IRRIGATION (11:07)
--- NOTE | 2021-02-04 12:20 | P.OP_ITS ---
Procedure Note - Detailed Date of procedure: 02/04/21 Pre-op diagnosis: Acute renal failure, cirrhosis Post-op diagnosis: same Procedure performed: Left internal jugular Tunneled Dialysis Catheter placement using ultrasound and fluoroscopic guidance Description of procedure: * Procedure as well as risks, benefits, and alternatives were discussed with patient. Written consent was obtained and placed in chart prior to procedure. Patient was brought back to surgical suite. Placed supine on operating table. Time-out was done confirm patient procedure. IV sedation was then administered by the Anesthesia Department. His chest and neck area was prepped and draped in sterile fashion using chlorhexidine prep. Patient was placed in Trendelenburg position. SonoSite ultrasound was used to identify the left internal jugular vein. It was visualized as a compressible vessel just lateral to the carotid artery. 1% lidocaine with epinephrine was infiltrated directly over the vessel under ultrasound guidance. An 18 gauge introducer needle was then advanced under ultrasound guidance directly into the left internal jugular vein. Dark nonpulsatile blood was aspirated. A 0.035 in guidewire was then advanced through the needle under fluoroscopic guidance. The guidewire was visualized advancing all the way down into the superior vena cava. 1% lidocaine with epinephrine was then infiltrated on the left anterior chest and along the tract up to the guidewire insertion site. A 5 mm incision was made with a 15 blade scalpel. A small concha incision was then also made at the insertion site at the neck. The tunneler was then advanced from the chest incision up to the neck incision and the catheter tubing was brought up through this tract. The dilator and sheath were then advanced over the guidewire under fluoroscopic visualization. The dilator and guidewire were then removed leaving the sheath in place. The catheter tubing was then advanced through the sheath under fluoroscopic guidance. The sheath was unsnapped and carefully peeled away. The catheter tubing was released underneath the neck incision. Fluoroscopy was used to confirm proper placement of the catheter tubing and no kinks along its path. The catheter was then hep-locked with Hep-Lock solution. The skin of the incisions was then approximated using 4-0 Monocryl subcuticular suture. 4x4 gauze and tape were applied at the incisions. The patient was then awakened from anesthesia and transferred to recovery. Implants: 28 cm [id number] Dialysis Catheter Anesthesia: MAC and local (1% lidocaine with epinephrine) Surgeon: Cheo Medina DO Estimated blood loss (mL): 50 Complications: No immediate complications Condition: stable Disposition: floor Findings: * LIJ tunneled dialysis catheter placed under u/s and fluoroscopy. Left IJ seen under u/s and 18 guage needle inserted under guidance. Fluoroscopy was then used to guide advancement of guidewire, dilators, and sheath. Final fluoroscopic images demonstrated catheter tip in proper position without kinks along its path. Patient did bleed when sheath was placed and even continued to have some bleeding around the catheter at the neck incision. Pressure applied for 10 minutes and pressure dressing applied. Will order 2 more units of FFP to help stop bleeding.
--- NOTE | 2021-02-04 12:25 | WPDINTPN ---
Progress Note: A&P Assessment and Plan (1) Septic shock: Code(s): A41.9 - Sepsis, unspecified organism; R65.21 - Severe sepsis with septic shock Status: Acute Assessment and Plan: RESOLVED: PATIENT OFF ALL INOTROPES Mixed septic and cardiogenic shock -02/02 Hemodynamics have improved now and patient is now off of all vasopressors. -DOBUTAMINE infusion was started for inotropic support, with no major benefit except worsening of tachycardia and PVCs and was discontinued -continue to monitor hemodynamics -continue Solu-Medrol for COPD -will maintain mean arterial pressures (2) Acute respiratory failure: Code(s): J96.00 - Acute respiratory failure, unspecified whether with hypoxia or hypercapnia Status: Acute Assessment and Plan: Acute Respiratory failure secondary to pneumonia pulmonary, COPD, pleural effusion Patient was on BiPAP until 01/31. Now saturating well on nasal cannula and in no respiratory distress Continue close monitoring Currently on 2 L nasal cannula with good O2 sats CT Chest 01/31/2021 1. Moderate cardiomegaly. Large right pleural effusion, right middle and lower lobe collapse. 2. Small regions bilateral peripheral atelectasis or pneumonia. Thoracentesis planned for the pleural effusion on the right once coagulopathy improves (3) PNA (pneumonia): Code(s): J18.9 - Pneumonia, unspecified organism Status: Acute Assessment and Plan: Empiric broad-spectrum antibiotics continue Zosyn, Cultures are negative as of now. Vancomycin discontinued 02/04/2021 (4) COPD (chronic obstructive pulmonary disease): Code(s): J44.9 - Chronic obstructive pulmonary disease, unspecified Status: Acute Assessment and Plan: Continue steroids, bronchodilators (5) Pleural effusion: Code(s): J90 - Pleural effusion, not elsewhere classified Status: Acute Assessment and Plan: Thoracentesis planned once coagulopathy resolves (6) CONI (acute kidney injury): Code(s): N17.9 - Acute kidney failure, unspecified Status: Acute Assessment and Plan: Reviewed records from [place] patient was admitted with COVID last month and also had hyperkalemia with acute kidney injury. At the time of discharge patient was continued on low-dose lisinopril. His creatinine was around 1.3 at the time of discharge - It is possible the patient has been having worsening of his creatinine since discharge which was compounded by septic shock and poor cardiac output from congestive heart failure CT abdomen pelvis and ultrasound shows no hydronephrosis Thurman catheter replaced 02/01 Patient is now off vasopressors. Off all diuretics Appreciate nephrology following the patient -renal function continues to worsen -tunnel dialysis catheter was placed by surgery on 02/04/2021 -patient to get dialysis starting today 02/04/21 (7) Hyperkalemia: Code(s): E87.5 - Hyperkalemia Status: Acute Assessment and Plan: Resolved -continue to monitor (8) Coagulopathy: Code(s): D68.9 - Coagulation defect, unspecified Status: Acute Assessment and Plan: INR elevated patient not on any anticoagulation suspect secondary to liver disease Vitamin K 10 mg subcu given 01/31, 02/03 and 02/04 Patient was given FFP on 02/04 before placement of the dialysis catheter I also ordered DDAVP for possible uremic bleeding Continue to monitor coags (9) Elevated liver transaminase level: Code(s): R74.01 - Elevation of levels of liver transaminase levels Status: Acute Assessment and Plan: Significantly elevated liver enzymes likely consistent with shock liver with component of hepatic congestion. Patient admits to taking 2 tablets of Tylenol a day on most days for his migraine headache but denies any increase usage recently. Tylenol level was normal CT abdomen reviewed Ultrasound right upper quadrant of abdomen showed no portal vein thrombosis
--- NOTE | 2021-02-04 12:50 | PM.PNNEP ---
Progress Note: A&P Assessment and Plan (1) CONI (acute kidney injury): Code(s): N17.9 - Acute kidney failure, unspecified Status: Acute Assessment and Plan: multifactorial etiology: - poor cardiac output/depressed EF (cardiorenal syndrome) - poor liver function causing decreased effective circulating volume and prerenal azotemia (like HRS) - cortical necrosis? - just severe ATN? trial of dialysis today and reassess given his multitude of issues, dialysis may not change his longterm prognosis (2) CHF (congestive heart failure): Code(s): I50.9 - Heart failure, unspecified Status: Acute Assessment and Plan: EF is only 15% Cardiology following failed dobutamine gtt (3) Cirrhosis: Code(s): K74.60 - Unspecified cirrhosis of liver Status: Acute Assessment and Plan: due to hepatitis C liver dysfunction noted liver enzymes are improving, but his bilirubin continues to climb Discussed case with Dr. Gibbs. Will continue to follow. Subjective Date/time seen: 02/04/21 12:50 Back from OR after having tunneled HD catheter placement; plan for HD this afternoon but there is significant concern regarding how well he will tolerated such an intervention. Exam Narrative: Exam Narrative: General: WD/WN male in NAD Heart: normal S1 and S2; no rub Lungs: decreased at bases, R>L Abdomen: soft, nontender, mild distension, positive bowel sounds Extremities: no cyanosis or clubbing; 1+ edema Skin: warm and dry Objective Data Vital Signs Vital Signs: Vital Signs - 24 hr 02/03/21 19:24 02/03/21 20:00 02/03/21 22:00 Temperature 36.3 C L 36.4 C L Pulse Rate 91 92 95 Respiratory Rate 20 18 28 H Blood Pressure 109/82 105/77 Pulse Oximetry 93 92 96 02/03/21 23:59 02/04/21 00:00 02/04/21 02:00 Temperature 36.5 C 36.6 C Pulse Rate 94 96 97 Respiratory Rate 17 21 H Blood Pressure 105/83 104/80 Pulse Oximetry 96 96 94 02/04/21 04:00 02/04/21 06:00 02/04/21 07:45 Temperature 36.7 C 36.4 C 36.6 C Pulse Rate 103 H 97 97 Respiratory Rate 23 H 20 19 Blood Pressure 111/81 109/89 119/81 Pulse Oximetry 94 90 95 02/04/21 07:50 02/04/21 08:00 02/04/21 08:03 Temperature 36.6 C 36.6 C Pulse Rate 97 98 97 Respiratory Rate 19 25 H 23 H Blood Pressure 102/78 102/78 Pulse Oximetry 99 97 97 02/04/21 08:05 02/04/21 08:45 02/04/21 09:54 Temperature 37.2 C 36.8 C Pulse Rate 98 Respiratory Rate 23 H 22 H Blood Pressure 102/78 121/81 Pulse Oximetry 97 98 95 02/04/21 10:00 02/04/21 11:24 02/04/21 11:40 Temperature 36.6 C Pulse Rate 100 108 H 106 H Respiratory Rate 14 12 Blood Pressure 117/80 126/85 Pulse Oximetry 99 100 02/04/21 11:55 02/04/21 12:46 02/04/21 12:53 Temperature 36.4 C Pulse Rate 105 H 116 H 115 H Respiratory Rate 10 L 25 H Blood Pressure 117/83 119/92 H Pulse Oximetry 92 92 02/04/21 13:51 02/04/21 13:53 02/04/21 14:00 Temperature 36.6 C 36.6 C Pulse Rate 116 H 113 H 115 H Respiratory Rate 23 H 18 20 Blood Pressure 124/90 119/87 Pulse Oximetry 96 100 02/04/21 14:08 02/04/21 14:09 02/04/21 15:21 Temperature 36.6 C 36.6 C Pulse Rate 116 H 114 H 99 Respiratory Rate 17 30 H 19 Blood Pressure 119/87 116/89 Pulse Oximetry 98 95 02/04/21 15:37 02/04/21 15:43 02/04/21 16:00 Temperature 36.6 C Pulse Rate 98 97 98 Respiratory Rate 21 H 14 Blood Pressure 116/91 H Pulse Oximetry 97 97 02/04/21 16:06 02/04/21 18:00 Temperature 36.6 C 36.6 C Pulse Rate 101 H 92 Respiratory Rate 19 9 L Blood Pressure 117/89 113/84 Pulse Oximetry 97 92 Intake/Output Intake/Output: Intake & Output 02/01/21 02/02/21 02/03/21 02/04/21 23:59 23:59 23:59 23:59 Intake Total 2815.00 3327 900 1311 Output Total 25 55 95 110 Balance 2790.00 3272 805 1201 Meds/Results Medications: Active Medications Generic Name Dose Route Start La
[2021-02-04 12:55] LABS: Ammonia 14 umol/L (9-30)
[2021-02-04] MEDS: IPRATROPIUM BR 0.02% INH SOLN 0.5 MG/2.5 ML VIAL INHALATION ×2 (13:52→20:43)
[2021-02-04] MEDS: SODIUM CHLORIDE 0.9% IVPB (13:55)
[2021-02-04] MEDS: DESMOPRESSIN ACETATE IVPB (13:55)
[2021-02-04] MEDS: PHYTONADIONE ADULT INJ 10 MG in DEXTROSE 5% IN WATER 50 ML 68 MG IVPB (13:56)
[2021-02-04 14:04] LABS: Glucose Point of Care 155 (65-105)
--- NOTE | 2021-02-04 16:17 | PM.IMPN ---
Progress Note: A&P Assessment and Plan (1) Septic shock: Code(s): A41.9 - Sepsis, unspecified organism; R65.21 - Severe sepsis with septic shock Status: Acute Assessment and Plan: 02/04/21 16:17 Keith Jha is a 60 year old male with a past medical history CABG in 2018, COPD, and recently he was treated for COVID-19 at [facility] and discharged about a week ago, patient again presented to the hospital with cough shortness of breath, his lactic acid was elevated to 10, he was hypotensive and, metabolic acidosis, in sepsis patient was transferred to the [facility], patient was placed on bicarb drip, and started the patient on Zosyn and vancomycin, patient also developed supraventricular tachycardia and was given adenosine to abort the rhythm and now is in sinus rhythm, currently on amiodarone infusion, and seen by fresh work inspector, patient also has a large right-sided pleural effusion and will need thoracentesis, patient INR is 2.7 and given vitamin K, patient is a very poor historian sleepy unable to provide detailed review of symptoms or history, patient seen by dairy products maker and discussed and appreciate. 02/01 patient appears more somnolent and ill, patient with elevated liver enzyme and bili, patient had abdominal US and showed Biphasic portal venous waveform, likely indicating portal hypertension. Probably cirrhosis. Fagoter suspect Tylenol toxicity however acetaminophen levels were low however dairy products maker had decided to start the patient on acetadote for hepatoprotaction effect for next 24hrs, patient still hypotensive however patient volume overloaded and urine output is poor unable to give fluid patient is on Levophed and vasopressin as well as hydrocortisone, patient with a pleural effusion in need of thoracentesis however patient is elevated INR of 6 today, patient was given vitamin K without improvement, dairy products maker will give FFP and will monitor, prognosis is poor will continue to monitor. 02/02 patient with worsening liver function today's INR 13.7 compared 6 yesterday and 2 on arrival, discussed with dairy products maker patient received 3 units of FFP and vitamin K patient is in need thoracentesis, cardiology and dairy products maker suspect the prognosis is poor patient is more somnolent today, received Mucomyst on 02/01, appreciate dairy products maker will continue to monitor. 02/03 patient with worsening liver function on 02/02 INR was 13.7 compared 6 on 02/01 and 2 on arrival, patient was given 3 units of FFP and to day his INR is 4.6 and not candidate for thoracentesis, patient was started on dobutamine drip and high dose IV lasix 80mg urine out is poor due to severe ischemic cardiomyopathy, dairy products maker and Nephrology recommending dialysis to improve currently function will follow, cardiology and dairy products maker suspect the prognosis is poor patient is more somnolent today, received Mucomyst on 02/01, appreciate dairy products maker will continue to monitor. 02/04 patient with worsening liver function 2/2 liver cirrhosis on 02/02 INR was 13.7 compared 6 on 02/01 and 2 on arrival, patient was given 3 units of FFP and today his INR is 3.6 and not candidate for thoracentesis, patient was started on dobutamine drip and high dose IV lasix 80mg urine out is poor due to severe ischemic cardiomyopathy, dairy products maker and Nephrology recommended dialysis to improve his kidney function reduce volume overload, today patient had tunnel cather placed and patient will have dialysis today, cardiology and dairy products maker suspect the prognosis is poor patient is more somnolent today, received Mucomyst on 02/01, appreciate dairy products maker will continue to monitor. Today spoke with girlfriend who is his POA, if the dialysis does not improve patient condition she is considering comfort care for the patient. (2) Acute respiratory failure: Code(s): J96.00 - Acute respiratory failure, unspecified whether with hypoxia or hypercapnia Status: Acute Assessment
--- NOTE | 2021-02-04 16:20 | WPDGIPROGNO ---
Progress Note: A&P Assessment and Plan (1) Septic shock: Code(s): A41.9 - Sepsis, unspecified organism; R65.21 - Severe sepsis with septic shock Status: Acute Assessment and Plan: now off of all vasopressors. still in icu (2) Shock liver: Code(s): K72.00 - Acute and subacute hepatic failure without coma Status: Acute Assessment and Plan: liver enzymes slowly trending down he received mucomyst IV as prophylaxis given acute liver injury he had remote history of HCV which was treated (3) Cirrhosis: Code(s): K74.60 - Unspecified cirrhosis of liver Status: Acute Assessment and Plan: ultrasound reviewed, possible portal hypertension and maybe cirrhosis (4) Coagulopathy: Code(s): D68.9 - Coagulation defect, unspecified Status: Acute Assessment and Plan: vit K and FFP correcting prolonged INR (5) CONI (acute kidney injury): Code(s): N17.9 - Acute kidney failure, unspecified Status: Acute Assessment and Plan: worsening renal failure, HD catheter and then will start dialysis (6) Elevated liver transaminase level: Code(s): R74.01 - Elevation of levels of liver transaminase levels Status: Acute (7) CHF (congestive heart failure): Code(s): I50.9 - Heart failure, unspecified Status: Acute (8) COPD (chronic obstructive pulmonary disease): Code(s): J44.9 - Chronic obstructive pulmonary disease, unspecified Status: Acute Subjective Date/time seen: 02/04/21 16:20 Interval history: he is confused, now off of all vasopressors. Still poor appetite. He is getting vit K and FFP Review of Systems Review of Systems: All systems reviewed & are unremarkable except as noted in HPI and below Exam Const: General: no acute distress Other: alert but confused HENMT: General nose exam: Normal nares present Eyes: General: appearance normal, both eyes and all related structures Neck: Neck: supple Resp: Auscultation: crackles and diminished lung sounds Cardio: Rate: regular rate GI: GI Palp: Yes Soft to palpation and No Guarding due to palpation present (GI) Auscultation: normal bowel sounds Skin: General skin exam: normal color Neuro: Cognition (Neuro): abnormal cognition Speech: normal speech Psych: Affect: Anxious affect present Objective Data Vital Signs Vital Signs: Vital Signs - 24 hr 02/03/21 18:00 02/03/21 19:24 02/03/21 20:00 Temperature 97.5 F L 97.3 F L Pulse Rate 92 91 92 Respiratory Rate 16 20 18 Blood Pressure 104/76 109/82 Pulse Oximetry 98 93 92 02/03/21 22:00 02/03/21 23:59 02/04/21 00:00 Temperature 97.5 F L 97.7 F Pulse Rate 95 94 96 Respiratory Rate 28 H 17 Blood Pressure 105/77 105/83 Pulse Oximetry 96 96 96 02/04/21 02:00 02/04/21 04:00 02/04/21 06:00 Temperature 97.8 F 98.1 F 97.6 F Pulse Rate 97 103 H 97 Respiratory Rate 21 H 23 H 20 Blood Pressure 104/80 111/81 109/89 Pulse Oximetry 94 94 90 02/04/21 07:45 02/04/21 07:50 02/04/21 08:00 Temperature 97.9 F 98 F Pulse Rate 97 97 98 Respiratory Rate 19 19 25 H Blood Pressure 119/81 102/78 Pulse Oximetry 95 99 97 02/04/21 08:03 02/04/21 08:05 02/04/21 08:45 Temperature 98 F 98.9 F Pulse Rate 97 98 Respiratory Rate 23 H 23 H Blood Pressure 102/78 102/78 Pulse Oximetry 97 97 98 02/04/21 09:54 02/04/21 10:00 02/04/21 11:24 Temperature 98.3 F 97.8 F Pulse Rate 100 108 H Respiratory Rate 22 H 14 Blood Pressure 121/81 117/80 Pulse Oximetry 95 99 02/04/21 11:40 02/04/21 11:55 02/04/21 12:46 Temperature 97.6 F Pulse Rate 106 H 105 H 116 H Respiratory Rate 12 10 L 25 H Blood Pressure 126/85 117/83 119/92 H Pulse Oximetry 100 92 92 02/04/21 12:53 02/04/21 13:51 02/04/21 13:53 Temperature 97.8 F Pulse Rate 115 H 116 H 113 H Respiratory Rate 23 H 18 Blood Pressure 124/90 Pulse Oximetry 96 02/04/21 14:00 02/04/21 14:08 02/04/21 14:09 Tempera
[2021-02-04 17:43] LABS: Glucose Point of Care 150 (65-105)
[2021-02-04] MEDS: EPOETIN ALFA-EPBX 10,000 UNITS/ML VIAL 10000 UNITS IV PUSH (19:45)
[2021-02-04 21:28] LABS: Hepatitis B Surface Antigen Negative (Negative)
--- NOTE | 2021-02-04 22:37 | ECG_ITS ---
Measurements Intervals [place] Rate: 102 P: 28 ME: 168 QRS: 32 QRSD: 110 T: 240 QT: 339 QTc: 443 Interpretive Statements SINUS TACHYCARDIA VENTRICULAR PREMATURE COMPLEX INCOMPLETE RIGHT BUNDLE BRANCH BLOCK T WAVE ABNORMALITY IN LATERAL LEADS- CONSIDER ISCHEMIA ABNORMAL ECG Electronically Signed On 02-05-2021 7:14:11 CONTRACT POST OFFICE CLERK by Sammy Gonzales D.O.
[2021-02-04 22:56] LABS: Glucose Point of Care 115 (65-105)
[2021-02-05] VITALS (14 sets, daily range): BP systolic 102–127; BP diastolic 77–98; PULSE 83–123; RESP 14–24; TEMP 36.1–37.2; O2SAT 92–100
[2021-02-05 00:37] LABS: Hepatitis B Surface Anti Res Negative
[2021-02-05] MEDS: OLANZapine 10 MG INJ VIAL 2.5 MG IM (01:24)
[2021-02-05] MEDS: WATER, STERILE FOR INJECTION 10 ML VIAL XX ×2 (01:25→22:08)
--- NOTE | 2021-02-05 03:20 | PC.NURSE ---
Patient's POA Indira Snowden notified of cardiovascular status and wishes patient to be a DNR.
[2021-02-05 04:06] LABS: Hematocrit 25.1 % (42.0-52.0); Hemoglobin 7.7 g/dL (14.0-18.0); Mean Corpuscular HGB Conc 30.7 g/dl (32-36); Mean Corpuscular Hemoglobin 23.4 pg (26-34); Mean Corpuscular Volume 76.3 fl (80-100); Mean Platelet Volume 11.3 fl (7.4-10.4); Platelet Count Result 154 k/mm3 (150-375); Red Blood Count 3.29 M/mm3 (4.6-6.20); Red Cell Distribution Width 19.3 % (11.5-14.5); White Blood Count 8.2 K/mm3 (4.5-10.0)
[2021-02-05 04:10] LABS: INR 2.8; Prothrombin Time 29.7 Seconds (11.1-14.7)
[2021-02-05 04:17] LABS: Albumin Level 3.7 g/dL (3.5-5.1); Alkaline Phosphatase 113 U/L (38-126); Anion Gap 17 mmol/L (8-16); Aspartate Amino Transferase 691 U/L (17-59); Bilirubin,Total 7.1 mg/dL (0.2-1.3); Blood Urea Nitrogen 56 mg/dL (9-20); Calcium 8.5 mg/dL (8.4-10.2); Carbon Dioxide 25 mmol/L (22-30); Chloride 92 mmol/L (98-107); Estimated CRCL calculation 13 ml/min; Estimated Glomerular Filt Rate 12; Glucose 124 mg/dL (75-110); Phosphorus 8.4 mg/dL (2.5-4.5); Potassium 4.5 mmol/L (3.4-5.0); Sodium 134 mmol/L (137-145)
[2021-02-05 04:19] LABS: Alanine Aminotransferase 1031 U/L (4-50)
[2021-02-05] MEDS: CENTRAL LINE FLUSH 10 ML IV PUSH ×3 (06:12→21:59)
[2021-02-05] MEDS: ASPIRIN 325 MG TABLET PO (07:45)
[2021-02-05] MEDS: methylPREDNISolone SOD SUCC 40 MG VIAL IV PUSH (07:46)
[2021-02-05] MEDS: PANTOPRAZOLE SODIUM IV 40 MG VIAL IV PUSH ×2 (07:46→21:09)
[2021-02-05 08:12] LABS: Alveolar/Arterial O2 Gradient 64.2 mmHg; Base Excess ABG -1.9 mEq/l (+/-2.0); Device NASAL CANNULA; Fractional Inspired Oxygen 28 %; HCO3 ABG 23.5 mEq/l (22.0-26.0); Modified Allen's Test Pass; Oxygen Content ABG 11.6 %vol (16.0-22.0); Oxygen Saturation ABG 96.1 % (95.0-100.0); Oxyhemoglobin 93.5 % THb (90.0-100.0); PCO2 ABG 42.6 mmHg (35.0-45.0); PO2 ABG 85.2 mmHg (80.0-100.0); PO2 FiO2 Ratio Arterial Blood 3.04 %; Site Drawn RIGHT RADIAL; Total Hemoglobin 8.7 g/dL (12.0-18.0); pH ABG 7.359 (7.350-7.450)
--- NOTE | 2021-02-05 08:45 | WPDINTPN ---
Progress Note: A&P Assessment and Plan (1) Encephalopathy: Code(s): G93.40 - Encephalopathy, unspecified Status: Acute Assessment and Plan: Patient encephalopathic could be multifactorial, secondary to liver dysfunction, uremia, multiorgan failure severe critical care illness\ -goals within normal limits, -ABGs done this morning on 02/05: PH 7.35, pCO2 42, PO2 85, bicarb 23, O2 sats 96% on 2 L nasal cannula -patient was started on dialysis on 02/04/2021, will be dialyzed again today per Nephrology -patient is confused and hallucinating and was given Zyprexa. -will have Neurology evaluate the patient (2) Septic shock: Code(s): A41.9 - Sepsis, unspecified organism; R65.21 - Severe sepsis with septic shock Status: Acute Assessment and Plan: RESOLVED: PATIENT OFF ALL INOTROPES Mixed septic and cardiogenic shock -02/02 Hemodynamics improved and patient is off of all vasopressors. -DOBUTAMINE infusion was started for inotropic support, with no major benefit except worsening of tachycardia and PVCs and was discontinued -continue to monitor hemodynamics -continue Solu-Medrol for COPD -will maintain adequate mean arterial pressures (3) Acute respiratory failure: Code(s): J96.00 - Acute respiratory failure, unspecified whether with hypoxia or hypercapnia Status: Acute Assessment and Plan: Acute Respiratory failure secondary to pneumonia pulmonary, COPD, pleural effusion Patient was on BiPAP until 01/31. Now saturating well on nasal cannula and in no respiratory distress Continue close monitoring Currently on 2 L nasal cannula with good O2 sats CT Chest 01/31/2021 1. Moderate cardiomegaly. Large right pleural effusion, right middle and lower lobe collapse. 2. Small regions bilateral peripheral atelectasis or pneumonia. Thoracentesis planned for the pleural effusion on the right once coagulopathy improves (4) PNA (pneumonia): Code(s): J18.9 - Pneumonia, unspecified organism Status: Acute Assessment and Plan: Empiric broad-spectrum antibiotics continue Zosyn, Cultures are negative as of now. Vancomycin discontinued 02/04/2021 (5) COPD (chronic obstructive pulmonary disease): Code(s): J44.9 - Chronic obstructive pulmonary disease, unspecified Status: Acute Assessment and Plan: Continue steroids, bronchodilators (6) Pleural effusion: Code(s): J90 - Pleural effusion, not elsewhere classified Status: Acute Assessment and Plan: Thoracentesis planned once coagulopathy resolves (7) CONI (acute kidney injury): Code(s): N17.9 - Acute kidney failure, unspecified Status: Acute Assessment and Plan: Reviewed records from [place] patient was admitted with COVID last month and also had hyperkalemia with acute kidney injury. At the time of discharge patient was continued on low-dose lisinopril. His creatinine was around 1.3 at the time of discharge - It is possible the patient has been having worsening of his creatinine since discharge which was compounded by septic shock and poor cardiac output from congestive heart failure CT abdomen pelvis and ultrasound shows no hydronephrosis Thurman catheter replaced 02/01 Patient is now off vasopressors. Off all diuretics Appreciate nephrology following the patient -renal function continues to worsen -tunnel dialysis catheter was placed by surgery on 02/04/2021 -Started dialysis on 02/04/21 (8) Coagulopathy: Code(s): D68.9 - Coagulation defect, unspecified Status: Acute Assessment and Plan: INR elevated patient not on any anticoagulation suspect secondary to liver disease Vitamin K 10 mg subcu given 01/31, 02/03 and 02/04 Patient was given FFP on 02/04 before placement of the dialysis catheter I also ordered DDAVP for possible uremic bleeding Continue to monitor coags (9) Elevated liver transaminase level: Code(s): R74.01 - Elevation of levels of liver tra
--- NOTE | 2021-02-05 13:58 | WPDNEURCNPN ---
Assessment and Plan Assessment and plan (1) Encephalopathy: Code(s): G93.40 - Encephalopathy, unspecified Status: Acute Additional Plan encephalopathy multifactorial in nature neurological status explained discussed with Dr. arreola Consult date: 02/05/21 Time Seen: 11:00 HPI: Keith Jha is a 60 year old male admitted to the hospital with a past medical history of CABG in 2018, COPD, recent treatment of COVID-19 and [facility] and also with history that he was discharged about a week ago. [place] he presented the hospital with cough shortness of breath when his lactic acid was elevated to 10, with hypertensive in metabolic acid acidosis subsequently he was placed on bicarb drip started on Zosyn and vancomycin neurology consultation at this stage has been obtained to evaluate the neurological status Review of Systems Review of Systems: All systems reviewed & are unremarkable except as noted in HPI and below PMFSH Past Medical History Medical History CAD (coronary artery disease) Cirrhosis COPD (chronic obstructive pulmonary disease) COVID-19 History of hepatitis C Shock liver Surgical History Surgical History Hx of CABG Family History Family History Father Lung cancer Grandparent Lung cancer Social History Social History Smoking packs per day: 1 Smoking cigarettes per day: 20.0 Years smoked: 46 Smoking pack-years: 46.00 Smoking status: Former smoker Tobacco type: cigarettes Smoking end date: 01/03/21 Alcohol intake: former Substance use: former Substance use type: marijuana Spiritual care concerns: No Meds Home Medications and Allergies Home Medications Medication Instructions Recorded Confirmed Type aspirin 81 mg PO DAILY 01/31/21 01/31/21 History cholecalciferol (vitamin D3) 50 mcg PO DAILY 01/31/21 01/31/21 History furosemide 40 mg PO DAILY 01/31/21 01/31/21 History lisinopril 2.5 mg PO DAILY 01/31/21 01/31/21 History pravastatin 40 mg PO DAILY 01/31/21 01/31/21 History Allergies Allergy/AdvReac Type Severity Reaction Status Date / Time No Known Allergies Allergy Verified 01/31/21 06:19 Vital Signs Vital Signs - 24 hr 02/04/21 14:00 02/04/21 14:08 02/04/21 14:09 Temperature 36.6 C 36.6 C Pulse Rate 115 H 116 H 114 H Pulse Rate [Right] Respiratory Rate 20 17 30 H Blood Pressure 119/87 119/87 Pulse Oximetry 100 98 02/04/21 15:21 02/04/21 15:37 02/04/21 15:43 Temperature 36.6 C 36.6 C Pulse Rate 99 98 97 Pulse Rate [Right] Respiratory Rate 19 21 H 14 Blood Pressure 116/89 116/91 H Pulse Oximetry 95 97 97 02/04/21 16:00 02/04/21 16:06 02/04/21 18:00 Temperature 36.6 C 36.6 C Pulse Rate 98 101 H 92 Pulse Rate [Right] Respiratory Rate 19 9 L Blood Pressure 117/89 113/84 Pulse Oximetry 97 92 02/04/21 19:00 02/04/21 19:22 02/04/21 19:45 Temperature 36.6 C Pulse Rate 93 101 H 104 H Pulse Rate [Right] Respiratory Rate 14 Blood Pressure 116/82 124/89 127/94 H Pulse Oximetry 96 02/04/21 20:00 02/04/21 20:15 02/04/21 20:30 Temperature 36.6 C Pulse Rate 118 H 100 104 H Pulse Rate [Right] Respiratory Rate 16 Blood Pressure 126/91 H 124/89 128/91 H Pulse Oximetry 95 02/04/21 20:43 02/04/21 20:45 02/04/21 20:53 Temperature Pulse Rate 108 H 102 H 103 H Pulse Rate [Right] Respiratory Rate 22 H 20 Blood Pressure 124/92 H Pulse Oximetry 98 02/04/21 21:00 02/04/21 21:15 02/04/21 21:30 Temperature Pulse Rate 103 H 104 H 102 H Pulse Rate [Right] Respiratory Rate Blood Pressure 131/90 125/91 H 124/93 H Pulse Oximetry 02/04/21 22:00 02/04/21 22:02 02/04/21 22:40 Temperature 36.7 C Pulse Rate 100 95 92 Pulse Rate [Right] Respiratory
--- NOTE | 2021-02-05 15:58 | WPDGIPROGNO ---
Progress Note: A&P Assessment and Plan (1) Septic shock: Code(s): A41.9 - Sepsis, unspecified organism; R65.21 - Severe sepsis with septic shock Status: Acute Assessment and Plan: now off of all vasopressors. still in icu apparently family decided hospice (2) Shock liver: Code(s): K72.00 - Acute and subacute hepatic failure without coma Status: Acute Assessment and Plan: liver enzymes keep trending down, probably he has underlying cirrhosis (HCV treated and former alcoholic) he received mucomyst IV as prophylaxis given acute liver injury (3) Cirrhosis: Code(s): K74.60 - Unspecified cirrhosis of liver Status: Acute Assessment and Plan: ultrasound reviewed, possible portal hypertension and maybe cirrhosis (4) Coagulopathy: Code(s): D68.9 - Coagulation defect, unspecified Status: Acute Assessment and Plan: he received vit K and FFP (5) CONI (acute kidney injury): Code(s): N17.9 - Acute kidney failure, unspecified Status: Acute Assessment and Plan: worsening renal failure, HD catheter and started on dialysis but now family about to make a decision on hospice (6) Elevated liver transaminase level: Code(s): R74.01 - Elevation of levels of liver transaminase levels Status: Acute (7) CHF (congestive heart failure): Code(s): I50.9 - Heart failure, unspecified Status: Acute (8) COPD (chronic obstructive pulmonary disease): Code(s): J44.9 - Chronic obstructive pulmonary disease, unspecified Status: Acute Subjective Date/time seen: 02/05/21 15:58 Interval history: still confused, family member at bedside says that would like to discuss hospice and no more dialysis Review of Systems Review of Systems: All systems reviewed & are unremarkable except as noted in HPI and below Exam Const: General: no acute distress Other: alert but confused HENMT: General nose exam: Normal nares present Eyes: General: appearance normal, both eyes and all related structures Neck: Neck: supple Resp: Auscultation: crackles and diminished lung sounds Cardio: Rate: regular rate GI: GI Palp: Yes Soft to palpation and No Guarding due to palpation present (GI) Auscultation: normal bowel sounds Skin: General skin exam: normal color Neuro: Cognition (Neuro): abnormal cognition Speech: normal speech Psych: Affect: Anxious affect present Objective Data Vital Signs Vital Signs: Vital Signs - 24 hr 02/04/21 16:00 02/04/21 16:06 02/04/21 18:00 Temperature 98 F 97.9 F Pulse Rate 98 101 H 92 Pulse Rate [Right] Respiratory Rate 19 9 L Blood Pressure 117/89 113/84 Pulse Oximetry 97 92 02/04/21 19:00 02/04/21 19:22 02/04/21 19:45 Temperature 97.8 F Pulse Rate 93 101 H 104 H Pulse Rate [Right] Respiratory Rate 14 Blood Pressure 116/82 124/89 127/94 H Pulse Oximetry 96 02/04/21 20:00 02/04/21 20:15 02/04/21 20:30 Temperature 97.8 F Pulse Rate 118 H 100 104 H Pulse Rate [Right] Respiratory Rate 16 Blood Pressure 126/91 H 124/89 128/91 H Pulse Oximetry 95 02/04/21 20:43 02/04/21 20:45 02/04/21 20:53 Temperature Pulse Rate 108 H 102 H 103 H Pulse Rate [Right] Respiratory Rate 22 H 20 Blood Pressure 124/92 H Pulse Oximetry 98 02/04/21 21:00 02/04/21 21:15 02/04/21 21:30 Temperature Pulse Rate 103 H 104 H 102 H Pulse Rate [Right] Respiratory Rate Blood Pressure 131/90 125/91 H 124/93 H Pulse Oximetry 02/04/21 22:00 02/04/21 22:02 02/04/21 22:40 Temperature 98.0 F Pulse Rate 100 95 92 Pulse Rate [Right] Respiratory Rate 13 19 Blood Pressure 133/80 133/50 L 120/70 Pulse Oximetry 93 02/04/21 22:46 02/05/21 00:00 02/05/21 02:00 Temperature 98.0 F 98.7 F Pulse Rate 102 H 106 H Pulse Rate [Right] 92 Respiratory Rate 19 19 23 H Blood Pressure 119/79 126/87 Pulse Oximetry 95 97 96 02/05/21 04:00
--- NOTE | 2021-02-05 17:11 | PM.IMPN ---
Progress Note: A&P Assessment and Plan (1) Septic shock: Code(s): A41.9 - Sepsis, unspecified organism; R65.21 - Severe sepsis with septic shock Status: Acute Assessment and Plan: Interval history: patient with worsening liver function 2/2 liver cirrhosis on 02/02 INR was 13.7 compared 6 on 02/01 and 2 on arrival, patient was given 3 units of FFP and today his INR is 3.6 and not candidate for thoracentesis, patient was started on dobutamine drip and high dose IV lasix 80mg urine out is poor due to severe ischemic cardiomyopathy, funds transfer clerk and Nephrology recommended dialysis to improve his kidney function reduce volume overload, today patient had tunnel catheter placed and patient will have dialysis today, cardiology and funds transfer clerk suspect the prognosis is poor patient is more somnolent today. Girlfriend has decided on hospice (POA) (2) Acute respiratory failure: Code(s): J96.00 - Acute respiratory failure, unspecified whether with hypoxia or hypercapnia Status: Acute Assessment and Plan: Most likely secondary to large pleural effusion on the right side, pneumonia and exacerbation of COPD, pt changed to hospice. (3) PNA (pneumonia): Code(s): J18.9 - Pneumonia, unspecified organism Status: Acute Assessment and Plan: Sepsis most likely secondary to pneumonia, pt changed to hospice. (4) COPD (chronic obstructive pulmonary disease): Code(s): J44.9 - Chronic obstructive pulmonary disease, unspecified Status: Acute Assessment and Plan: Long history of smoking, patient is treated with a steroid and updraft, pt changed to hospice. (5) Pleural effusion: Code(s): J90 - Pleural effusion, not elsewhere classified Status: Acute Assessment and Plan: Patient with large right-sided pleural effusion will need thoracentesis, pt changed to hospice. (6) Chest pain: Code(s): R07.9 - Chest pain, unspecified Status: Acute Assessment and Plan: Patient with history of CABG now with chest and elevated trops, pt changed to hospice. (7) SVT (supraventricular tachycardia): Code(s): I47.1 - Supraventricular tachycardia Status: Acute Assessment and Plan: Supple ventricle tachycardia most likely secondary to hypoxia, pt changed to hospice. Subjective Date/time seen: 02/05/21 17:11 Interval history: Interval history: Schneedle is a 60 year old male with a past medical history CABG in 2018, COPD, and recently he was treated for COVID-19 at [facility] and discharged about a week ago, patient again presented to the hospital with cough shortness of breath, his lactic acid was elevated to 10, he was hypotensive and, metabolic acidosis, in sepsis patient was transferred to the [facility], patient was placed on bicarb drip, and started the patient on Zosyn and vancomycin, patient also developed supraventricular tachycardia and was given adenosine to abort the rhythm and now is in sinus rhythm, currently on amiodarone infusion, and seen by corn chip maker, patient also has a large right-sided pleural effusion and will need thoracentesis, patient INR is 2.7 and given vitamin K, patient is a very poor historian sleepy. Due to patient ongoing encephalopathy, POA - girlfriend has decided on hospice at home for the patient. Review of Systems Review of Systems: All systems reviewed & are unremarkable except as noted in HPI and below Exam Narrative: Exam Narrative: Appears chronically ill older than his age, encephalopathic Patient is comfortable LUNGS: Normal respiratory effort ABDO: Not distended Lower extremities: no edema SKIN: nonjaundiced Neuro: grossly intact. Objective Data Vital Signs Vital Signs: Vital Signs - 24 hr 02/04/21 18:00 02/04/21 19:00 02/04/21 19:22 Temperature 36.6 C 36.6 C Pulse Rate 92 93 101 H Pulse Rate [Right] Respiratory Rate 9 L 14 Blood Pressure 113/84 1
[2021-02-05 17:21] LABS: Glucose Point of Care 159 (65-105)
[2021-02-05] MEDS: IPRATROPIUM BR 0.02% INH SOLN 0.5 MG/2.5 ML VIAL INHALATION (20:09)
[2021-02-05] MEDS: OLANZapine 10 MG INJ VIAL 5 MG IM (21:43)
[2021-02-06] VITALS (11 sets, daily range): BP systolic 118–125; BP diastolic 82–87; PULSE 45–95; RESP 12–18; TEMP 35.5–36.2; O2SAT 93–96
[2021-02-06 01:03] LABS: Glucose Point of Care 142 (65-105)
[2021-02-06 06:48] LABS: Glucose Point of Care 159 (65-105)
[2021-02-06] MEDS: CENTRAL LINE FLUSH 10 ML IV PUSH (06:53)
[2021-02-06] MEDS: IPRATROPIUM BR 0.02% INH SOLN 0.5 MG/2.5 ML VIAL INHALATION ×3 (08:33→20:14)
--- NOTE | 2021-02-06 08:42 | PM.PNCARD ---
Progress Note: A&P Assessment and Plan (1) Acute respiratory failure: Code(s): J96.00 - Acute respiratory failure, unspecified whether with hypoxia or hypercapnia Status: Acute Assessment and Plan: Acute respiratory failure secondary to large right pleural effusion, possible underlying pneumonia. At this time thoracentesis is being hold off because of elevated INR. Patient had COVID infection last month (2) SVT (supraventricular tachycardia): Code(s): I47.1 - Supraventricular tachycardia Status: Acute Assessment and Plan: Sinus rhythm (3) CHF (congestive heart failure): Code(s): I50.9 - Heart failure, unspecified Status: Acute Assessment and Plan: He has reported that he has ejection fraction 28% last month. Obtain records. (4) Septic shock: Code(s): A41.9 - Sepsis, unspecified organism; R65.21 - Severe sepsis with septic shock Status: Acute Assessment and Plan: On antibiotic (5) Cirrhosis: Code(s): K74.60 - Unspecified cirrhosis of liver Status: Acute (6) Coagulopathy: Code(s): D68.9 - Coagulation defect, unspecified Status: Acute Subjective Date/time seen: 02/06/21 08:42 Interval history: Follow-up visit in this 60-year-old man with: Ischemic heart disease with previous CABG in the remote past. Patient now following recent [place] virus infection has serious problem with picture of cardiogenic shock he has very high transaminases and advancing renal insufficiency. Date of service 02/06/2021: No chest pain or shortness of breath. Reportedly being discharged with hospice Review of Systems Constitutional: Constitutional: Reports fatigue, Reports headache(s), Reports lethargy and Reports weakness Eyes: Eyes: Denies blurry vision ENT: Reports headache(s) and Denies epistaxis Cardiovascular: Cardiovascular: Denies chest pain and Reports dyspnea Respiratory: Respiratory: Reports cough and Reports dyspnea Gastrointestinal: Gastrointestinal: Denies abdominal pain and Denies diarrhea Genitourinary: Genitourinary: Denies flank pain Musculoskeletal: Musculoskeletal: Denies back pain Integumentary/Breasts: Skin/Breast: Denies pruritus and Denies rash Neurologic: Reports headache(s) and Reports weakness Psychiatric: Psychiatric: Reports anxiety Endocrine: Endocrine: Reports fatigue Hematologic/Lymphatic: Hematologic/Lymphatic: Denies easy bruising Exam Const: General: comfortable and no acute distress Other: Chronically ill-appearing 60-year-old man in the ICU currently offering no complaints HENMT: General nose exam: no epistaxis Mouth: Yes dry mucous membranes Eyes: Sclera: sclerae normal Pupils: Equal, round and reactive pupils present Neck: Neck: supple and no JVD Other: Carotid upstrokes are diminished in volume but normal in upstroke Resp: Effort & Inspection: normal respiratory effort Auscultation: rales and diminished lung sounds Other: Breath sounds are distant in both lung powers with diminished breath sounds Cardio: Rate: regular rate Rhythm: regular rhythm Other: PMI laterally displaced and enlarged summation gallop noted GI: Auscultation: normal bowel sounds Urinary Catheter: Urinary Catheter: patent and draining Skin: General skin exam: normal color Neuro: Cranial nerves: Yes Equal, round and reactive pupils present Cognition (Neuro): normal cognition Speech: normal speech Motor exam (neuro): 5/5 motor strength present throughout Extrem: Other: No peripheral edema Psych: Affect: normal affect Objective Data Vital Signs Vital Signs: Vital Signs - 24 hr 02/05/21 09:56 02/05/21 10:00 02/05/21 11:11 Temperature 37.1 C Pulse Rate 102 H 107 H 102 H Respiratory Rate 23 H 18 Blood Pressure 102/88 Pulse Oximetry 100 99 02/05/21 12:00 02/05/21 16:00 02/05/21 19:05 Temperature 37.1 C 36.1 C L Pulse Rate 118 H 87 85 Respiratory Rate 18 16 Blood Pres
[2021-02-06] MEDS: methylPREDNISolone SOD SUCC 40 MG VIAL IV PUSH (09:01)
[2021-02-06] MEDS: ASPIRIN 325 MG TABLET PO (09:01)
[2021-02-06] MEDS: PANTOPRAZOLE SODIUM IV 40 MG VIAL IV PUSH (09:01)
--- NOTE | 2021-02-06 12:57 | PM.DS ---
DS: Admitting Diagnosis Admitting Diagnosis Admitting Diagnosis: Shortness of breath DS: Discharge Diagnosis Discharge Diagnosis (1) Septic shock: Code(s): A41.9 - Sepsis, unspecified organism; R65.21 - Severe sepsis with septic shock Status: Acute Assessment and Plan: Interval history: patient with worsening liver function 2/2 liver cirrhosis on 02/02 INR was 13.7 compared 6 on 02/01 and 2 on arrival, patient was given 3 units of FFP and today his INR is 3.6 and not candidate for thoracentesis, patient was started on dobutamine drip and high dose IV lasix 80mg urine out is poor due to severe ischemic cardiomyopathy, generator mechanic and Nephrology recommended dialysis to improve his kidney function reduce volume overload, today patient had tunnel catheter placed and patient will have dialysis today, cardiology and generator mechanic suspect the prognosis is poor patient continues to be somnolent today. Girlfriend has decided on hospice (POA) Pt discharged to [facility]. (2) Acute respiratory failure: Code(s): J96.00 - Acute respiratory failure, unspecified whether with hypoxia or hypercapnia Status: Acute Assessment and Plan: Most likely secondary to large pleural effusion on the right side, pneumonia and exacerbation of COPD, pt changed to hospice. (3) PNA (pneumonia): Code(s): J18.9 - Pneumonia, unspecified organism Status: Acute Assessment and Plan: Sepsis most likely secondary to pneumonia, pt changed to hospice. (4) COPD (chronic obstructive pulmonary disease): Code(s): J44.9 - Chronic obstructive pulmonary disease, unspecified Status: Acute Assessment and Plan: Long history of smoking, patient is treated with a steroid and updraft, pt changed to hospice. (5) Pleural effusion: Code(s): J90 - Pleural effusion, not elsewhere classified Status: Acute Assessment and Plan: Patient with large right-sided pleural effusion will need thoracentesis, pt changed to hospice. (6) Chest pain: Code(s): R07.9 - Chest pain, unspecified Status: Acute Assessment and Plan: Patient with history of CABG now with chest and elevated trops, pt changed to hospice. (7) SVT (supraventricular tachycardia): Code(s): I47.1 - Supraventricular tachycardia Status: Acute Assessment and Plan: Supple ventricle tachycardia most likely secondary to hypoxia, pt changed to hospice. DS: Summary Hospital Course Hospital Course: Complicated history see interval history from previous days. Overall pt is very unwell with poor prognosis, ischemic cardiomyopathy, history of CABG and recent covid. Treated in [place] for cardiogenic shock, sepsis, elevated liver function and acute renal failure. Also found to have Pneumonia and large R sided pleural effusion. Interval history: Keith Jha is a 60 year old male with a past medical history CABG in 2018, COPD, and recently he was treated for COVID-19 at [facility] and discharged about a week ago, patient again presented to the hospital with cough shortness of breath, his lactic acid was elevated to 10, he was hypotensive and, metabolic acidosis, in sepsis patient was transferred to the [facility], patient was placed on bicarb drip, and started the patient on Zosyn and vancomycin, patient also developed supraventricular tachycardia and was given adenosine to abort the rhythm and now is in sinus rhythm, on amiodarone infusion, and seen by profiling machine set up operator, patient also has a large right-sided pleural effusion and will need thoracentesis. 02/01 patient appears more somnolent and ill, patient with elevated liver enzyme and bili, patient had abdominal US and showed Biphasic portal venous waveform, likely indicating portal hypertension. Probably cirrhosis. Engine Repair Supervisor suspect Tylenol toxicity however acetaminophen levels were low however generator mechanic had decided to star
[2021-02-06 18:30] LABS: Glucose Point of Care 210 (65-105)
--- NOTE | 2021-02-06 20:19 | PC.NURSE ---
Follow up call to EMS transportation. EMS expected time of arrival at 2130 to receive patient and transport them home for further care. Updated [facility] care on patients new expected time of arrival.
--- NOTE | 2021-02-06 20:22 | PC.NURSE ---
[facility] called to further update that new ETA is now expected at 2230 to 2245 for patient transport.
--- NOTE | 2021-02-07 00:57 | PC.NURSE ---
[facility] arrived at 0057 on 02/07/2021 to transport the patient home. [facility] notified of patient transport as well as Indira (patient's significant other who patient will discharge home with).
== END 2021-02-07 00:57 | disposition hospice, home (50) | DRG 720 ==
PROVIDERS: Internal Medicine; Internal Medicine Gastroenterology; Internal Medicine Nephrology; Surgery; Admitting Provider Family Medicine; Visit Provider Family Medicine
PROC: 0JH63XZ Insertion of Tunneled Vascular Access Device into Chest Subcutaneous Tissue and Fascia, Percutaneous Approach (ICD-10-PCS; CPT 36908; principal; 2021-02-04 09:30)
DX: A41.9 Sepsis, unspecified organism (principal); R65.21 Severe sepsis with septic shock; J96.01 Acute respiratory failure with hypoxia; J18.9 Pneumonia, unspecified organism; J44.1 Chronic obstructive pulmonary disease with (acute) exacerbation; J90 Pleural effusion, not elsewhere classified; K72.00 Acute and subacute hepatic failure without coma; R57.0 Cardiogenic shock; J44.0 Chronic obstructive pulmonary disease with (acute) lower respiratory infection; I47.1 Supraventricular tachycardia; N17.9 Acute kidney failure, unspecified; I50.9 Heart failure, unspecified; E78.5 Hyperlipidemia, unspecified; D68.9 Coagulation defect, unspecified; I25.5 Ischemic cardiomyopathy; K74.60 Unspecified cirrhosis of liver; I25.10 Atherosclerotic heart disease of native coronary artery without angina pectoris; E87.5 Hyperkalemia; Z86.16 Personal history of COVID-19; Z87.891 Personal history of nicotine dependence; Z95.1 Presence of aortocoronary bypass graft; Z86.19 Personal history of other infectious and parasitic diseases
CPT/HCPCS: 36415; 36430; 36600; 71045; 71250; 74176; 76705; 76775; 77001; 80048; 80053; 80307; 81001; 82140; 82533; 82550; 82570; 82803; 82805; 82948; 83605; 83615; 83735; 84100; 84156; 84300; 84311; 84484; 85025; 85027; 85384; 85610; 85730; 85999; 86706; 86900; 86901; 87040; 87070; 87205; 87340; 87522; 93005; 93306; 93978; 94002; 94003; 94640; A9270; C1750; C9113; G0257; J0132; J0282; J0610; J1250; J1644; J1720; J1815; J1940; J2250; J2270; J2405; J2543; J2597; J2704; J2920; J3010; J3370; J3430; J3475; J7030; J7040; J7050; J7060; J7070; P9017; Q5106